=== PATIENT | female | born 1985 | race Hispanic/Latino ===

== ENCOUNTER 2020-02-03 06:26 | Emergency (ER) | payer SELFPAY ==
--- OUTSIDE RECORDS SUMMARY | 2020-02-03 06:28 | XMS REPORT | Continuity of Care Document ---
:[address] [facility] t Address [address] [place] [place] [address] Care Team Providers Name Role Phone Jean-Pierre Awan Attending Clinician Problems This patient has no known problems. Allergies, Adverse Reactions, Alerts This patient has no known allergies or adverse reactions. Medications This patient has no known medications. Procedures This patient has no known procedures. Encounters Start End Encounter Admission Attending Care Care Encounter Source Date/Time Date/Time Type Type Clinicians Facility Department ID 2020-02-02 2020-02-02 Office HUBER Mckeon [id number] 12:51:44 13:39:32 Visit Gorge Morejon [facility] [id number] [facility] [id number] MATERNAL [phone] & CHILD [address] [place] [address] Results This patient has no known results.
--- OUTSIDE RECORDS SUMMARY | 2020-02-03 06:29 | XMS REPORT | Summary of Care ---
:1985 Author Organization [facility] - Health Address [address] [place] [address] Care Team Providers Name Role Phone Jean-Pierre Mckeon Primary Care Provider Encounter Details Date Type Department Care Team Description 02/02/2020 Orders Only [facility] Doctor Unassigned, No [address] [facility] [place] [address] [address] [place] [place] [id number] Allergies Active Allergy Reactions Severity Noted Date Comments Hydrocodone Hives 11/24/2013 Penicillins Hives 11/24/2013 documented as of this encounter (statuses as of 02/02/2020) Medications Medication Sig Dispensed Refills Start Date End Date Status metformin HCl (METFORMIN Take by mouth. 0 Active ORAL) norgestimate-ethinyl Take 1 tablet by 1 Package 3 02/02/2020 Active estradiol (SPRINTEC) mouth daily. 0.25-35 mg-mcg per tabletIndications: Encounter for contraceptive management, unspecified type naproxen 250 mg Take 1 tablet by 60 tablet 0 02/02/2020 Active tabletIndications: Pain mouth 2 (two) pelvic times daily with meals. documented as of this encounter (statuses as of 02/02/2020) Active Problems Problem Noted Date Trichomonosis 03/25/2018 Encounter for control pills maintenance 03/22/20 19 Well woman exam (no gynecological exam) 03/22/2018 Morbid obesity 03/22/2018 Screen for STD (sexually transmitted disease) 03/22/20 18 Irregular menstrual cycle 01/18/2018 Ovarian cyst 01/18/2018 Overview: Dr Ortiz [place] Dysfunctional uterine bleeding 12/15/2013 documented as of this encounter (statuses as of 02/02/2020) Immunizations Name Administration Dates Next Due TDAP 07/06/2012 documented as of this encounter Social History Tobacco Use Types Packs/Day Years Used Date Never Smoker Smokeless Tobacco: Never Used Alcohol Use Drinks/Week oz/Week Comments No Sex Assigned at Date Recorded Not on file Job Start Date Occupation Industry Not on file Not on file Not on file Travel History Travel Start Travel End No recent travel history available. COVID-19 Exposure Response Date Recorded In the last month, have you been in contact with No / Unsure 02/02/2020 1:39 PM CDT someone who was confirmed or suspected to have Coronavirus / COVID-19? documented as of this encounter Last Filed Vital Signs Not on filedocumented in this encounter Plan of Treatment Date Type Specialty Care Team Description 02/17/2020 Office Visit [facility] Health Maintenance Due Date Last Done Comments INFLUENZA VACCINE (#1) 2020 Depression Screening 02/01/2021 02/02/2020 VARICELLA VACCINES (1 of 2 02/01/2021 Postp oned from - 2-dose childhood series) 09/21 (Alternative Guidelines) PAP SMEAR 03/22/2021 03/22/2018, 11/24/2013, 11/22/2009, Additional history exists DTaP,Tdap,and Td Vaccines 07/06/2022 07/06/2012 (2 - Td) PNEUMOCOCCAL 0-64 YEARS Aged Out No longe r eligible COMBINED SERIES based on patient 's age to complete this topic documented as of this encounter Procedures Procedure Name Priority Date/Time Associated Diagnosis Comme nts NOTICE OF PRIVACY Routine 02/02/2020 1:41 PM CDT PRACTICES documented in this encounter Results Not on filedocumented in this encounter Insurance Payer Benefit Plan Subscriber ID Effective Phone Address Typ e / Group Dates [employer] [place] [id number] xxxxxxxxx 2020-Prese [phone] Medicaid WOMEN nt [address] [place] [address] [facility] [employer] [facility] [id number] 2018-Prese [phone] [address] PPO/POS - OUT OF nt [id number] [place] [address] documented as of this encounter Advance Directives Name Relationship Healthcare Agent Relationship Co mmunication Justine Kearney Primary healthcare agent
--- OUTSIDE RECORDS SUMMARY | 2020-02-03 06:29 | XMS REPORT | Summary of Care ---
:1985 Author Organization [facility] Address [address] [place] [id number] Care Team Providers Name Role Phone Jean-Pierre Mckeon Primary Care Provider Reason for Visit Reason Comments Well Woman Exam Encounter Details Date Type Department Care Team Description 02/02/2020 Office Visit [facility] Mckeon Well woman exam (no gynecological exam) (Primary Dx); CATERINA Portillo Encounter for contraceptive management, unspecified type; [address] Screening for STD (sexually transmitted disease); [address] [place] Pain pelvic; [place], [place] [address] Menorrhagia with regular cycle; [id number] Class 3 severe obesity with body mass in dex (BMI) of 45.0 to 49.9 in adult, unspecified obesity type, unspecified whether serious comorbidity present; [phone] BMI 45.0- 49.9, adult Allergies Active Allergy Reactions Severity Noted Date Comments Hydrocodone Hives 11/24/2013 Penicillins Hives 11/24/2013 documented as of this encounter (statuses as of 02/02/2020) Medications Medication Sig Dispensed Refills Start Date End Date Status metformin HCl Take by 0 Active (METFORMIN ORAL) mouth. norgestimate-ethinyl Take 1 tablet 1 Package 3 02/02/2020 Active estradiol (SPRINTEC) by mouth 0.25-35 mg-mcg per daily. tabletIndications: Encounter for contraceptive management, unspecified type naproxen 250 mg Take 1 tablet 60 tablet 0 02/02/2020 Active tabletIndications: by mouth 2 Pain pelvic (two) times daily with meals. phentermine Take 37.5 mg 0 02/02/2020 Disc ontinued (ADIPEX-P) 37.5 mg by mouth capsule every morning. norgestimate-ethinyl Take 1 tablet 1 Package 11 03/22/201801/05 Discontinued estradiol (SPRINTEC) by mouth 0.25-35 mg-mcg per daily. tabletIndications: Encounter for contraceptive management, unspecified type ALPRAZolam (XANAX) Take 0.5 mg 0 0 Discontinued 0.5 mg tablet by mouth 3 (three) times daily. documented as of this encounter (statuses as of 02/02/2020) Active Problems Problem Noted Date Menorrhagia with regular cycle 02/02/2020 Pain pelvic 02/02/2020 Class 3 severe obesity with body mass index (BMI) of 4 5.0 to 49.9 in 02/02/2020 adult, unspecified obesity type, unspecified whether s erious comorbidity present BMI 45.0-49.9, adult 02/02/2020 Trichomonosis 03/25/2018 Encounter for control pills maintenance 03/22/20 19 Well woman exam (no gynecological exam) 03/22/2018 Morbid obesity 03/22/2018 Encounter for contraceptive management, unspecified ty pe 03/22/2018 Irregular menstrual cycle 01/18/2018 Ovarian cyst 01/18/2018 Overview: [place] Ortiz [place] Dysfunctional uterine bleeding 12/15/2013 documented as of this encounter (statuses as of 02/02/2020) Immunizations Name Administration Dates Next Due TDAP 07/06/2012 documented as of this encounter Social History Tobacco Use Types Packs/Day Years Used Date Never Smoker Smokeless Tobacco: Never Used Tobacco Cessation: Counseling Given: Yes Alcohol Use Drinks/Week oz/Week Comments No Sex [...] of this encounter Last Filed Vital Signs Vital Sign Reading Time Taken Comments Blood Pressure 132/89 02/02/2020 1:39 PM CDT Pulse 77 02/02/2020 1:39 PM CDT Temperature 37.1 C (98.7 F) 02/02/2020 1:39 PM CDT Respiratory Rate 16 02/02/2020 1:39 PM CDT Oxygen Saturation - - Inhaled Oxygen Concentration - - Weight 117.8 kg (259 lb 9.6 oz) 02/02/2020 1:39 PM CDT Height 157.5 cm (5' 2") 02/02/2020 1:39 PM CDT Body Mass Index 47.48 02/02/2020 1:39 PM CDT documented in this encounter Patient Instructions Patient InstructionsCodi Siddiqui LVN - 02/02/2020 12:45 PM CDT Patient Education Clinical Breast Exam Many health organizations recommend a yearly clinical breast exam. This exam may be done by a security system sales consultant, family healthcare provider, nurse practitioner, nurse ring maker, or specially trained nurse. Yearly breast exams help tomake surethat breast conditions are found early. Your healthcare providers role A healthcare professional knows the tests and follow-up care needed if a problem is found. Your clinical exam is also a great time to ask questions about breast self-exams. You can find out if yourechecking your breasts in the best way. Or you may want to ask how , breast implants, or breast reduction surgery affect the way you should check your breasts. Diagnostic tests If a clinical exam reveals a breast change, you may have other tests to find out more. These tests may include: Mammography. A low-dose X-ray of your breast tissue. Ultrasound. An imaging test that uses sound waves to create images of your breast. Biopsy. A small amount of breast tissue is removed by needle or by a cut (incision). The tissue is then checked under a microscope. Guidelines for having clinical breast exams The [employer] recommends that starting at age 29, you should have a clinical breast exam every 1 to 3 years. After age 40, have a clinical breast exam each year. If youre at higher risk for breast cancer, you may need exams more often. Risk factors for breast cancer may include: Being over 50 or postmenopausal Having a family history of breast cancer Having the BRCA1 or BRCA2 gene mutation or certain other gene mutations Having more menstrual periods due to starting menstruation early(before age 12) or having a late menopause (after age 55) Having no pregnancies Having a first after age 30 Being obese Having a history of radiation treatment to your chest area Exposure to FRED during your mother's Not being active Drinking too much alcohol Having dense breast tissue Taking hormone therapy after menopause Other health organizations have different recommendations. Talk with your healthcare provider about what is best for you. [employer] cecille reviewed this educational content on 02/03/201719992533-3289 The [employer]. [address] [place] [address]. All rights reserved. This information is not intended as a substitute for professional medical care. Always follow your healthcare professional's instructions. Patient Education Breast Health: Breast Self-Awareness What is breast self-awareness? Breast self-awareness is knowing how your breasts normally look and feel. Your breasts change as yougo through different stages of your life. So its important to learn what is normal for your breasts. Knowing about your breasts helps you spot any changes in them right away. Tell your healthcare provider about any changes. Why is breast self-awareness important? Many experts now say that women should focus on breast self-awareness instead of doing a breast self-examination (BSE). These experts include the [employer] and the [employer]. Some experts even advise not teaching women to do a BSE. Thats because research hasnt shown a clear benefit to doing BSEs. Breast self-awareness is different than a BSE. It isnt about following a certain method and schedule. Its about knowing what's normal for your breasts. That way you can spot even small changes right away. If you see any changes, tell your healthcare provider. Changes to look for Call your healthcare provider if you find any changes in your breasts that worry you. These changes may be: A lump Nipple discharge other than breastmilk, especially if it's bloody Swelling A change in size or shape Skin changes, such as redness, thickening, or dimpling of the skin Swollen lymph nodes in the armpit Nipple problems, such as pain or redness If you find a lump Call your provider if you find lumpiness in one breast. Also call if you feel something different inthe tissue or feel a definite lump. Sometimes lumpiness may be due to menstrual changes. But there may be reason for concern. Your provider may want to see you right away if you have: Nipple discharge that is bloody Skin changes on your breast, such as dimpling or puckering Its okay to be upset if you find a lump. Be sure to call your provider right away. Remember that most breast lumps are benign. This means they are not cancer. [employer] last reviewed this educational content on 02/03/201719996033-7473 The [employer]. [address] [place] [address], [place] [address]. All rights reserved. This information is not intended as a substitute for professional medical care. Always follow your healthcare professional's instructions. Patient Education Understanding STIs When it comes to sex, nothing is risk-free. Any sexual contact with the penis, vagina, anus, or mouth can spread a sexually transmitted infection (STI). These include chlamydia, gonorrhea, herpes, HIV,and genital warts. STIs are also known as sexually transmitted diseases (STDs). The only sure way toprevent STIs is not having sex (abstinence). But there are ways to make sex safer. Use a latex condom each time you have sex. And choose your partner wisely. Use condoms for safer sex If you have sex, latex condoms provide the best protection against STIs. Latex condoms stop the exchange of body fluids that carry certain STIs. They also limit contact with affected skin. Be aware that a condom doesnt cover all skin. So affected skin that isn't covered can still transfer disease. But youre safer with a condom than without one. Use a condom even if you use other control. control methods such as the pill or IUD help prevent , but they don't protect against STIs. Choose the right condom Condoms made of latex prevent disease best. If youre allergic to latex, use polyurethane condoms instead. Male condoms fit over the penis. Female condoms line the vagina. Before buying a condom, read the label to be sure it prevents disease. Some novelty condoms dont. The right lubricant helps Buy lubricated condoms or use lubricant. This provides greater comfort and reduces the risk for condom breakage. Use only water-based lubricants. Dont use oil, lotion, or petroleum jelly. They can weaken the condom, causing breakage. Also, you may want to choose lubricants without nonoxynol-9. This spermicide may cause irritation. It can raise the risk for certain STIs. Use condoms correctly For condoms to work, they must be used the right way. Keep these tips in mind: Use a new latex condom each time you have sex. Slip the condom on the penis before any contact ismade. When ready to withdraw, hold the rim of the condom as the penis pulls out. This prevents the condom from slipping off. Check the expiration date before using a condom. Dont store condoms in places that can get hot, such as a car or a wallet that is carried in a back pocket. Get to know your partner Safer sex is a process. It involves getting to know your partner and making informed choices. Ask each other how many partners you have had in the past, and how many you have now. Find out if either ofyou has HIV or any other STI. If you decide to have sex, use a condom each time. Dont stop using condoms unless youre sure neither of you has other partners and youve both been tested to confirm you dont have HIV or other STIs. Then stay free of disease by having sex only with each other (monogamy). Keep your cool Dont let alcohol or drugs cloud your judgment. They could lead you to have sex with someone you wouldnt have chosen if you were sober. Or you might forget to use a condom. If you do plan to have sex, keep a latex condom with you. Dont wait until youre in the heat of passion to try to find one. Consider abstinence The only way to be sure you wont get an STI is to abstain from sex. Abstinence is a choice that many people make at some point in their life. Maybe you want to wait until you are sure youre readybefore you have sex. Maybe youd like a break from the responsibilities of sex for a while. Or maybe you just want to know your partner better before taking the next step. Abstinence is a choice you can make now to protect your future. [employer] last reviewed this educational content on 06/05/201819992231-3024 The [employer]. [address] [place] [address], [place] [address]. All rights reserved. This information is not intended as a substitute for professional medical care. Always follow your healthcare professional's instructions. Patient Education Understanding HIV and AIDS It's important to know how HIV can get into your body and what happens once its there. Then youll be better prepared to protect yourself or others against this virus. A person with HIV can look and feel perfectly healthy. But that person can give HIV to others as soon as he or she is infected with the virus. Having unsafe or unprotected sex or sharing needles puts you at risk for HIV. Talk with your healthcare provider about ways to protect yourself or a loved one from getting HIV. How HIV infection progresses After HIV enters the body, it attacks the immune system in the stages below. A person with HIV can infect others once the virus gets into the blood. HIV with no symptoms. A person with HIV may have no symptoms for years. The only sign of infection may be a positive blood test for HIV 2 weeks to 3 months or later after HIV enters the body. HIV with symptoms. Some people develop an illness similar to mono (mononucleosis) 2 to 4 weeks after the virus enters the body. This is called acute retroviral syndrome. Symptoms may include swollen lymph glands, chills, fever, night sweats, weakness, weight loss, skin rashes, mouth ulcers, or sore t hroat. Symptoms may be mild or the person can feel quite sick. Even without treatment the symptoms almost always go away in a few days or up to 2 to 3 weeks. Then the person has no symptoms, often for years. But over time the immune system starts to get weaker and symptoms start appearing. People at this stage may have a yeast infection in the mouth (oral thrush), shingles, skin problems, pneumonia, diarrhea that keeps coming back, or weight loss. AIDS. AIDS is the most advanced stage of HIV infection, when the immune system is severely weakened.Certain rare diseases and cancers that normally would not occur, now can occur because the body can no longer fight them well enough. It is often these diseases that cause in people with AIDS. HIV may also directly attack the brain and nervous system. This causes seizures and loss of memory and body movement. It also affects many other parts of the body. This leads to problems such as anemia, low white blood cell count, diarrhea, belly pain, skin problems, and many others. How HIV enters the body HIV is carried in semen, vaginal fluid, blood, and breastmilk. During sex, HIV can enter the body. It gets in through the fragile tissue and linings, sores, or cuts in or around the vagina, penis, anus, and mouth. During drug use, tattooing, or body piercing, the virus can enter the blood through an infected needle. A mother who has HIV can infect her child during , childbirth, and . [employer] last reviewed this educational content on 12/04/201819999122-7349 The [employer]. [address] [place] [address], [place] [address]. All rights reserved. This information is not intended as a substitute for professional medical care. Always follow your healthcare professional's instructions. Patient Education Eating Heart-Healthy Foods Eating has a big impact on your heart health. In fact, eating healthier can improve several of your heart risks at once. For instance, it helps you manage weight, cholesterol, and blood pressure. Here are ideas to help you make heart- healthy changes without giving up allthe foods and flavors you love. Getting started Talk with your healthcare provider about eating plans, such as the DASH or Mediterranean diet. You may also be referred to a dietitian. Change a few things at a time. Give yourself time to get used to a few eating changes before adding more. Work to create a tasty, healthy eating plan that you can stick to for the rest of your life. Goals for healthy eating Below are some tips to improve your eating habits: Limit saturated fats and trans fats. Saturated fats raise your levels of cholesterol, so keep these fats to a minimum. They are found in foods such as fatty meats, whole milk, cheese, and palm and coconut oils. Avoid trans fats because they lower good cholesterol as well as raise bad cholesterol. Trans fats are most often found in processed foods. Reduce sodium (salt) intake. Eating too much salt may increase your blood pressure. Limit your sodium intake to 2,300 milligrams (mg) per day(the amount in 1 teaspoon of salt), or less if your healthcare provider recommends it. Dining out less often and eating fewer processed foods are two great ways to decrease the amount of salt you consume. Managing calories. A calorie is a unit of energy. Your body salazar calories for fuel, but if you eat more calories than your body salazar, the extras are stored as fat. Your healthcare provider can help you create a diet plan to manage your calories. This will likely include eating healthier foods as well as exercising regularly. To help you track your progress, keep a diary to record what you eat and how often you exercise. Choose the right foods Aim to make these foods georgiana of your diet. If you have diabetes, you may have different recommendations than what is listed here: Fruits and vegetables provide plenty of nutrients without a lot of calories. At meals, fill half your plate with these foods. Split the other half of your plate between whole grains and lean protein. Whole grains are high in fiber and rich in vitamins and nutrients. Good choices include whole-wheat bread, pasta, and brown rice. Lean proteins give you nutrition with less fat. Good choices include fish, skinless chicken, and beans. Low-fat or nonfat dairy provides nutrients without a lot of fat. Try low-fat or nonfat milk, cheese, or yogurt. Healthy fats can be good for you in small amounts. These are unsaturated fats, such as olive oil,nuts, and fish. Try to have at least 2 servings per week of fatty fish, such as salmon, sardines, mackerel, rainbow trout, and albacore tuna. These contain omega-3 fatty acids, which are good for your heart. Flaxseed is another source of a heart-healthy fat. More on heart-healthy eating Read food labels Healthy eating starts at the grocery store. Be sure to pay attention to food labels on packaged foods. Look for products that are high in fiber and protein, and low in saturated fat, cholesterol, and sodium. Avoid products that contain trans fat. And pay close attention to serving size. For instance, if you plan to eat two servings, double all the numbers on the label. Prepare food right A hutchinson part of healthy cooking is cutting down on added fat and salt. Look on the internet for lower-fat, lower-sodium recipes. Also, try these tips: Remove fat from meat and skin from poultry before cooking. Skim fat from the surface of soups and sauces. Broil, boil, bake, steam, grill, and microwave food without added fats. Choose ingredients that spice up your food without adding calories, fat, or sodium. Try these items: horseradish, hot sauce, lemon, mustard, nonfat salad dressings, and vinegar. For salt-free herbs and spices, try basil, cilantro, cinnamon, pepper, and silvina. [employer] last reviewed this educational content on 04/05/201719993990-0565 The [employer]. [address] [place] [address], [place] [address]. All rights reserved. This information is not intended as a substitute for professional medical care. Always follow your healthcare professional's instructions. Patient Education Understanding [employer] MyPlate The USDA (U.S. Department of Agriculture) has guidelines to help you make healthy food choices. These are called MyPlate. MyPlate shows the food groups that make up healthy meals using the image of a place setting. Before you eat, think about the healthiest choices for what to put onto your plate or into your cup or bowl. To learn more about building a healthy plate, visit www.choosemyplate.gov. The food groups Fruits. Any fruit or 100% fruit juice counts as part of the Fruit Group. Fruits may be fresh, canned, frozen, or dried, and may be whole, cut-up, or pureed. Make half your plate fruits and vegetables. Vegetables. Any vegetable or 100% vegetable juice counts as a member of the Vegetable Group. Vegetables may be fresh, frozen, canned, or dried. They can be served raw or cooked and may be whole, cut-up, or mashed. Make half your plate fruits and vegetables. Grains. All foods made from grains are part of the Grains Group. These include wheat, rice, oats,cornmeal, and barley such as bread, pasta, oatmeal, cereal, tortillas, and grits. Grains should be no more than a quarter of your plate. At least half of your grains should be whole grains. Protein. This group includes meat, poultry, seafood, beans and peas, eggs, processed soy products(like tofu), nuts (including nut butters), and seeds. Make protein choices no more than a quarter ofyour plate. Meat and poultry choices should be lean or low fat. Dairy. All fluid milk products and foods made from milk that contain calcium, like yogurt and cheese, are part of the Dairy Group. (Foods that have little calcium, such as cream, butter, and cream cheese, are not part of the group.) Most dairy choices should be low-fat or fat-free. Oils. These are fats that are liquid at room temperature. They include canola, corn, olive, soybean, and sunflower oil. Foods that are mainly oil include mayonnaise, certain salad dressings, and soft margarines. You should have only 5 to 7 teaspoons of oils a day. You probably already get this muchfrom the food you eat. [employer] cecille reviewed this educational content on 02/03/201719992980-6181 The [employer]. [address] [place] [address], [place] [address]. All rights reserved. This information is not intended as a substitute for professional medical care. Always follow your healthcare professional's instructions. Patient Education Prevention Guidelines,Women Ages 18 to 39 Screening tests and vaccines are an important part of managing your health. A screening test is doneto find possible disorders or diseases in people who don't have any symptoms. The goal is to find a disease early so lifestyle changes can be made and you can be watched more closely to reduce the riskof disease, or to detect it early enough to treat it most effectively. Screening tests are not considered diagnostic, but are used to determine if more testing is needed. Health counseling is essential, too. Below are guidelines for these, for women ages 18 to 39. Talk with your healthcare provider tomake sure youre up-to-date on what you need. Screening Who needs it How often Alcohol misuse All women in this age group At routine exams Blood pressure All women in this age group Yearly checkup if your blood pressure is normal Normal blood pressure is less than 120/80 mm Hg If your blood pressure reading is higher than normal, follow the advice of your healthcare provider Breast cancer All women in this age group should talk with their healthcare providers about the needfor clinical breast exams (CBE)1 Clinical breast exam every 3 years1 Cervical cancer Women ages 21 and older Women between ages 21 and 29 should have a Pap test every 3 years; women between ages 30 and 65 are advised to have a Pap test plus an HPV test every 5 years Chlamydia Sexually active women ages 25 and younger, and women at increased risk for infection (suchas having multiple sex partners) Every year if you're at risk or have symptoms Depression All women in this age group At routine exams Type 2 diabetes, prediabetes All women with no symptoms who are overweight or obese and have 1 or more other risk factors for diabetes At least every 3 years. Also, testing for diabetes during after the 24th week. Type 2 diabetes, prediabetes All women diagnosed with gestational diabetes Lifelong testing every 3 years Type 2 diabetes All women with prediabetes Every year Gonorrhea Sexually active women at increased risk for infection At routine exams Hepatitis C Anyone at increased risk At routine exams HIV All women should be tested at least once for HIV between the ages of 13 and 64 At routine exams.Those with risk factors for HIV should be tested at least annually. Obesity All women in this age group At routine exams Syphilis Women at increased risk for infection should talk with their healthcare provider At routineexams Tuberculosis Women at increased risk for infection should talk with their healthcare provider Ask your healthcare provider Vision All women in this age group At least 1 complete exam in your 20s, and 2 in your 30s Vaccine2 Who needs it How often Chickenpox (varicella) All women in this age group who have no record of this infection or vaccine 2doses; the second dose should be given 4 to 8 weeks after the first dose Hepatitis A Women at increased risk for infection should talk with their healthcare provider 2 dosesgiven at least 6 months apart Hepatitis B Women at increased risk for infection should talk with their healthcare provider 3 dosesover 6 months; second dose should be given 1 month after the first dose; the third dose should be given at least 2 months after the second dose and at least 4 months after the first dose Haemophilus influenzaeType B (HIB) Women at increased risk for infection should talk with their healthcare provider 1 to 3 doses Human papillomavirus (HPV) All women in this age group up to age 26 3 doses; the second dose should be given 1 to 2 months after the first dose and the third dose given 6 months after the first dose Influenza (flu) All women in this age group Once a year Measles, mumps, rubella (MMR) All women in this age group who have no record of these infections or vaccines 1 or 2 doses Meningococcal Women at increased risk for infection should talk with their healthcare provider 1 or more doses Pneumococcal conjugate vaccine (PCV13)and pneumococcal polysaccharidevaccine(PPSV23) Women at increased risk for infection should talk with their healthcare provider PCV13: 1 dose ages 19 to 65 (protects against 13 types of pneumococcal bacteria) PPSV23: 1 to2 doses through age 64, or 1 dose at 65 or older (protects against 23 types of pneumococcal bacteria) Tetanus/diphtheria/pertussis (Td/Tdap) booster All women in this age group Td every 10 years, or a one-time dose of Tdap instead of a Td booster after age 18, then Td every 10 years Counseling Who needs it How often BRCA gene mutation testing for breast and ovarian cancer susceptibility Women with increased risk for having gene mutation When your risk is known Breast cancer and chemoprevention Women at high risk for breast cancer When your risk is known Diet and exercise Women who are overweight or obese When diagnosed, and then at routine exams Domestic violence Women at the age in which they are able to have children At routine exams Sexually transmitted infection prevention Women who are sexually active At routine exams Skin cancer Prevention of skin cancer in fair-skinned adults At routine exams Use of tobacco and the health effects it can cause All women in this age group Every visit 1 According to the ACS, women ages 20 to 39 years should have a clinical breast exam (CBE) as part of their routine health exam every 3 years. Breast self-exams are an option for women starting in their 20s.But the USPSTF does not recommend CBE. [employer] last reviewed this educational content on 04/05/201719995689-4487 The [employer]. [address] [place] [address]. All rights reserved. This information is not intended as a substitute for professional medical care. Always follow your healthcare professional's instructions. documented in this encounter Progress Notes Gorge Mckeon, LICENSED EMBALMER - 02/02/2020 12:45 PM CDT Chief complaint: Chief Complaint Patient presents with Well Woman Exam HPI Patient is a LAF here for WWE and contraception management. Patient denies any abdominal/pelvic pain. Patient complains of missed menses for the month of December. Patient report she started menses on 01/31/2020. Patient reports today she has experienced heavy bleeding with large clots. Patient report she has never had this issue before. Patient report has is experience lots of pelvic pain with this menses as well. Patient report she is bleeding for heavy that she does not want pelvic exam.Patient reports last sexual intercourse was on 01/30/2020 and desires to use OCPs for BCM. Patient desiresneed for STD/STI testing. Patient denies current or past physical, sexual or emotional abuse. Histories OB History Para Term AB Living 0 SAB TAB Ectopic Multiple Live Births Past Medical History: Diagnosis Date Anxiety resolved Chlamydia 2012 treated Diabetes mellitus 11/2019 type 2, on medication Dysfunctional uterine bleeding 12/15/2013 Ovarian cyst PCOS (polycystic ovarian syndrome) 2017 Family History Problem Relation Age of Onset Diabetes Paternal Grandmother Cancer Paternal Grandfather stomach Arthritis Mother Diabetes Mother Cancer Father Arthritis Maternal Grandmother Diabetes Maternal Grandmother Asthma NoFHx defects NoFHx Breast Cancer NoFHx Colon Cancer NoFHx Ovarian Cancer NoFHx Uterine Cancer NoFHx Depression NoFHx Genetic NoFHx Heart NoFHx Hypertension NoFHx High cholesterol NoFHx Mental retardation NoFHx Neurological NoFHx Psychiatry NoFHx Osteoporosis NoFHx Other - see comments NoFHx Family Status Relation Name Status PGMo (Not Specified) PGFa (Not Specified) Mo Alive Fa Alive MGMo (Not Specified) NoFHx (Not Specified) Past Surgical History: Procedure Laterality Date MYRINGOTOMY 1992 Social History Socioeconomic History Marital status: Single Spouse name: Not on file Number of children: Not on file Years of education: Not on file Highest education level: Not on file Occupational History Not on file Social Needs Financial resource strain: Not on file Food insecurity: Worry: Not on file Inability: Not on file Transportation needs: Medical: Not on file Non-medical: Not on file Tobacco Use Smoking status: Never Smoker Smokeless tobacco: Never Used Substance and Sexual Activity Alcohol use: No Drug use: No Sexual activity: Yes Partners: Male control/protection: None Comment: last had sex 01/30/2020 Lifestyle Physical activity: Days per week: Not on file Minutes per session: Not on file Stress: Not on file Relationships Social connections: Talks on phone: Not on file Gets together: Not on file Attends hindu service: Not on file Active member of club or organization: Not on file Attends meetings of clubs or organizations: Not on file Relationship status: Not on file Intimate partner violence: Fear of current or ex partner: Not on file Emotionally abused: Not on file Physically abused: Not on file Forced sexual activity: Not on file Other Topics Concern Not on file Social History Narrative Patient lives with boyfriend. Congregation preference non-D. Social History Substance and Sexual Activity Sexual Activity Yes Partners: Male control/protection: None Comment: last had sex 01/30/2020 Labs Labs are pending. Radiology No new radiology. Allergies Yeimy is allergic to hydrocodone and pcn [penicillins]. Medications Yeimy has a current medication list which includes the following prescription(s): metformin hcl, naproxen, and norgestimate-ethinyl estradiol. Review of Systems Constitutional: Negative for activity change, appetite change, fatigue, unexpected weight change, weight gain and weight loss. HENT: Negative for sore throat. Eyes: Negative for visual disturbance. Respiratory: Negative for cough and shortness of breath. Breasts: Negative for discharge, mass, pain and unequal size. Cardiovascular: Negative for chest pain, palpitations and leg swelling. Gastrointestinal: Negative. Negative for abdominal pain, anal bleeding, blood in stool, constipation, diarrhea, nausea, rectal pain and vomiting. Genitourinary: Positive for vaginal bleeding and menstrual problem. Negative for bladder incontinence, dysuria, urgency, flank pain, vaginal discharge, genital sores, vaginal pain and pelvic pain. Skin: Negative for color change and rash. Neurological: Negative. Negative for dizziness, syncope and headaches. Psychiatric/Behavioral: Negative for confusion, self-injury and sleep disturbance. The patient is not nervous/anxious. Hematological: Negative for cold intolerance and heat intolerance. Endocrine: Negative for hair loss, cold intolerance, heat intolerance, weight gain and weight loss. BP 132/89 (BP Location: Right arm, Patient Position: Sitting, BP CUFF SIZE: Adult Medium) | Pulse 77 | Temp 37.1 C (98.7 F) (Oral) | Resp 16 | Ht 5' 2" (1.575 m) | Wt 259 lb 9.6 oz (117.8 kg)| LMP 12/01/2019 (Exact Date) | BMI 47.48 kg/m Pregravid BMI: Could not be calculated Physical Exam Vitals reviewed. Constitutional: She is oriented to person, place, and time. She appears well- developed and well-nourished. Her body habitus is normal. Cardiovascular: Regular rate and rhythm. No peripheral edema present. Pulmonary/Chest: Normal inspiratory effort. Neuro/Psychiatric: Inappropriate mood and affect. She is oriented to person, place, and time. Skin: Skin normal. No lesion, no rash and no ulceration present. Assessment/Plan Rubella:Positive VZV:N/A BMI:47.48 Td:2012 Pap Smear:2018, WNL Gardasil:N/A Mammogram:N/A Guaiac:N/A Colonoscopy:N/A Well woman exam (no gynecological exam) (primary encounter diagnosis) Comment: Routine WWE Plan: POCT TEST Denies zika virus risk, signs and symptoms such as fever,rash,joint pain, conjunctivitis (red eyes), muscle pain, headaches; outside [place] travel to areas affected by zika, and FOB exposure to zika.Educated on use of mosquito repellent. Covid x12 screening done, screening results are negative. Encounter for contraceptive management, unspecified type Comment: patient desires to restart OCPs Plan: norgestimate-ethinyl estradiol (SPRINTEC) 0.25-35 mg-mcg per tablet Patient desires OCPs for contraception. Provider has reviewed risks, benefits and alternatives contraception methods. Provider has also reviewed use, side effects and effectiveness of desired BCM vs other BCM. Encouraged abstinence until menses. Encouraged use of condoms as back up x 1 month and for safer sex. Screening for STD (sexually transmitted disease) Comment: patient desires Plan: GC & CHLAMYDIA AMPLIFIED ASSAY Pain pelvic Comment: see HPI Plan: naproxen 250 mg tablet, Patient given ER warnings. Menorrhagia with regular cycle Comment: See HPI Plan: [facility], Patient given ER warnings. Class 3 severe obesity with body mass index (BMI) of 45.0 to 49.9 in adult, unspecified obesity type, unspecified whether serious comorbidity present BMI 45.0-49.9, adult Comment: BMI:47.48 Plan: Patient encouraged to limit weight gain and advised to eat healthy diet, fruits, vegetables, increased fiber and water intake and protein low in fat. Encouraged exercise for 30 min everyday; begin regimen with caution to prevent injury. Encouraged to decrease BMI to <25. Return to clinic in 1 year for WWE or PRN weeks. Discussed treatment options. Medications as ordered. Reviewed patient instructions and provided printed copy. This visit did not involve counseling and coordination that comprised more than 50% of the visit time. CATERINA Blancas 02/02/2020 2:56 PM Codi Siddiqui LVN - 02/02/2020 12:45 PM CDT34 year old presented to the clinic for WWE. 1) Previous BCM:none 2) Desired BCM:none 3) LMP: 12/01/2019 4) Last [place]:01/30/2020 5) Last Pap:03/22/2018 Results:negative 6) Tdap in last 10 years?07/06/2012 HPV?negative 7) C/O Heavy bleeding and passed 3 golf ball sized clots today. 8) Patient denies history of physical, emotional, or sexual abuse. Patient states she currently feels safe at home. documented in this encounter Plan of Treatment Date Type Specialty Care Team Description 02/17/2020 Office Visit [facility] Name Type Priority Associated Diagnoses Order S chedule GC & CHLAMYDIA AMPLIFIED LAB Routine Screening for ST D Ordered: 02/02/2020 ASSAY (sexually transmitted disease) Health Maintenance Due Date Last Done Comments [...] Name Priority Date/Time Associated Diagnosis Comme nts POCT Routine 02/02/2020 1:20 Well woman exam (no Re sults for this TEST PM CDT gynecological exam) procedur e are in the results section. documented in this encounter Results POCT TEST (02/02/2020 1:20 PM CDT) Pathologist Sig nature POCT PREG Negative On board controls acceptable Yes with C Line POCT PREG LOT # POCT PREG TEST DATE Specimen Urine - URINE, CLEAN CATCH documented in this encounter Visit Diagnoses Diagnosis Encounter for contraceptive management, unspecified type Pain pelvic Unspecified symptom associated with fema le genital organs Menorrhagia with regular cycle Excessive or frequent menstruation Class 3 severe obesity with body mass in dex (BMI) of 45.0 to 49.9 in adult, unspecified obesity type, unspecified wh ether serious comorbidity present BMI 45.0-49.9, adult Body Mass Index 45.0-49.9, adult documented in this encounter Insurance Payer Benefit Plan Subscriber ID Effective Phone Address Typ e / Group Dates [facility] xxxxxxxxx 2020-Prese [phone] Medicaid WOMEN nt [address] [place] [address] documented as of this encounter Advance Directives Name Relationship Healthcare Agent Relationship Co mmunication Justine Kehinde Mother Primary healthcare agent
--- OUTSIDE RECORDS SUMMARY | 2020-02-03 06:29 | XMS REPORT | Summary of Care ---
:1985 Author Organization [facility] Address [address] [place] [id number] Care Team Providers Name Role Phone Jean-Pierre Mckeon Primary Care Provider Reason for Visit Reason Comments Well Woman Exam Encounter Details Date Type Department Care Team Description 02/02/[address] [facility] Gorge Mckeon Well woman exam (no gynecological exam) (Primary Dx); CATERINA Portillo Encounter for contraceptive management, unspecified type; [address] Screening for STD (sexually transmitted disease); [address] Pain pelvic; [place], [place] [address] Menorrhagia with regular cycle; [address] Class 3 severe obesity with body mass in dex (BMI) of 45.0 to 49.9 in adult, unspecified obesity type, unspecified whether serious comorbidity present; [phone] BMI 45.0- 49.9, adult Allergies Active Allergy [...] Ovarian cyst 01/18/2018 Overview: Dr Ortiz in [place] Dysfunctional uterine bleeding 12/15/2013 documented as of [...] This exam may be done by a upkeep mechanic, family healthcare provider, nurse practitioner, nurse radioisotope technologist, or specially trained nurse. Yearly breast exams [...] Guidelines for having clinical breast exams The [place] [employer]st[employer]ians and Gynec[employer] recommends that [...] provider about what is best for you. Zighra cecille reviewed this educational content on 02/03/201719991954-1842 The [employer]. [address] [place] [address]. All rights reserved. This information is not [...] breast self-examination (BSE). These experts include the [place] [employer] and the [place] [employer] of Obstetricians and Gynecologists. Some experts [...] benign. This means they are not cancer. [employer]ighra last reviewed this educational content on 02/03/201719994711-2416 The [employer]. [address] [place] [address], [place] [address]. All rights reserved. This information is not [...] can make now to protect your future. Zighra last reviewed this educational content on 06/05/201819994502-0744 The [employer]. [address] [place] [address], [place] [address]. All rights reserved. This information is not [...] her child during , childbirth, and . Zighra last reviewed this educational content on 12/04/201819994522-3348 The [employer]. [address] [place] [address], [place] [address]. All rights reserved. This information is not [...] try basil, cilantro, cinnamon, pepper, and silvina. Zighra last reviewed this educational content on 04/05/201719998722-9934 The [employer]. [address] [place] [address], [place] [address]. All rights reserved. This information is not intended as a substitute for professional medical care. Always follow your healthcare professional's instructions. Patient Education Understanding Bubble [employer] Balm MyPlate The USDA (U.S. Department of Agriculture) [...] get this muchfrom the food you eat. Zighra cecille reviewed this educational content on 02/03/201719995668-8413 The [employer]. [address] [place] [address], [place] [address]. All rights reserved. This information is not [...] 20s.But the USPSTF does not recommend CBE. Zighra last reviewed this educational content on 04/05/201719993439-1816 The [employer]. [address] [place] [address]. All rights reserved. This information is not intended as a substitute for professional medical care. Always follow your healthcare professional's instructions. documented in this encounter Progress Notes Gorge Mckeon, RELIEF MAP MODELER - 02/02/2020 12:45 PM CDT Chief complaint: [...] file Gets together: Not on file Attends mandaen service: Not on file Active member of [...] Social History Narrative Patient lives with boyfriend. Sikhism preference non-D. Social History Substance and Sexual [...] cycle Comment: See HPI Plan: [facility], Patient given ER warnings. Class 3 [...] Desired BCM:none 3) LMP: 12/01/2019 4) Last [place]:01/30/2020 5) Last Pap:03/22/2018 Results:negative 6) Tdap in [...] Address Typ e / Group Dates [facility] xxxxxxxxx 2020-Prese [phone] Medicaid WOMEN nt [address] [place] [address] documented as of this encounter Advance Directives Name Relationship Healthcare Agent Relationship Co mmunication Justine Kehinde Mother Primary healthcare agent
--- OUTSIDE RECORDS SUMMARY | 2020-02-03 06:30 | XMS REPORT | Summary of Care ---
:1985 Author Organization [facility] Address [address] [place] [id number] Care Team Providers Name Role Phone Jean-Pierre Mckeon Primary Care Provider Reason for Visit Reason Comments Well Woman Exam Encounter Details Date Type Department Care Team Description 02/02/2020 Office Visit [facility]- Gorge Mckeon Well woman exam (no gynecological exam) (Primary Dx); CATERINA Portillo Encounter for contraceptive management, unspecified type; [address] Screening for STD (sexually transmitted disease); [address] Pain pelvic; [place], [place] [address] Menorrhagia with regular cycle; [address] Class 3 severe obesity with body mass in dex (BMI) of 45.0 to 49.9 in adult, unspecified obesity type, unspecified whether serious comorbidity present; [phone] BMI 45.0- 49.9, adult Allergies Active Allergy [...] Ovarian cyst 01/18/2018 Overview: Dr Ortiz in [place] Dysfunctional uterine bleeding 12/15/2013 documented as of [...] This exam may be done by a nut dehydrator operator, family healthcare provider, nurse practitioner, nurse model and pattern supervisor, or specially trained nurse. Yearly breast exams [...] Guidelines for having clinical breast exams The [place] [employer]st[employer]ians and Gynecologists recommends that [...] provider about what is best for you. [employer] cecille reviewed this educational content on 02/03/201719991712-2076 The [employer]. [address] [place] [address]. All rights reserved. This information is not [...] breast self-examination (BSE). These experts include the [place] [employer] and the [place] [employer] of Obstetricians and Gynecologists. Some experts [...] benign. This means they are not cancer. [employer] last reviewed this educational content on 02/03/201719990870-5547 The [employer]. [address] [place] [address], [place] [address]. All rights reserved. This information is not [...] can make now to protect your future. [employer] last reviewed this educational content on 06/05/201819995769-5958 The [employer]. [address] [place] [address], [place] [address]. All rights reserved. This information is not [...] her child during , childbirth, and . [employer] last reviewed this educational content on 12/04/201819994721-5027 The [employer]. [address] [place] [address], [place] [address]. All rights reserved. This information is not [...] try basil, cilantro, cinnamon, pepper, and silvina. [employer] last reviewed this educational content on 04/05/201719992752-4492 The [employer]. [address] [place] [address], [place] [address]. All rights reserved. This information is not intended as a substitute for professional medical care. Always follow your healthcare professional's instructions. Patient Education Understanding Strategy Store MyPlate The USDA (U.S. Department of Agriculture) [...] get this muchfrom the food you eat. [employer] cecille reviewed this educational content on 02/03/201719993880-9213 The [employer], [employer]. [address] [place] [address], [place] [address]. All rights reserved. This information is not [...] 20s.But the USPSTF does not recommend CBE. [employer] last reviewed this educational content on 04/05/201719999339-0363 The [employer]. [address] [place] [address]. All rights reserved. This information is not intended as a substitute for professional medical care. Always follow your healthcare professional's instructions. documented in this encounter Progress Notes Gorge Mckeon, STATION ENGINEER MAIN LINE - 02/02/2020 12:45 PM CDT Chief complaint: [...] file Gets together: Not on file Attends mu-ism service: Not on file Active member of [...] Social History Narrative Patient lives with boyfriend. Hinduism preference non-D. Social History Substance and Sexual [...] cycle Comment: See HPI Plan: [facility], Patient given ER warnings. Class 3 [...] Desired BCM:none 3) LMP: 12/01/2019 4) Last [place]:01/30/2020 5) Last Pap:03/22/2018 Results:negative 6) Tdap in [...] Satellites Pgy2 Name Type Priority Associated Diagnoses Date/Ti me GC & CHLAMYDIA LAB Routine Screening for STD 02/02/20 20 3:24 PM CDT AMPLIFIED ASSAY (sexually transmitted disease) Health Maintenance Due [...] Address Typ e / Group Dates [facility] xxxxxxxxx 2020-Prese [phone] Medicaid WOMEN nt [address] [place] [address] documented as of this encounter Advance Directives Name Relationship Healthcare Agent Relationship Co mmunication Justine Busby Mother Primary healthcare agent
[2020-02-03] MEDS ORDERED: NA CHLORIDE 0.9% 1,000 ML ONE (07:02)
[2020-02-03] MEDS ORDERED: ONDANSETRON 4 MG/2 ML VIAL ONE ×2 (07:02→09:02)
[2020-02-03] MEDS ORDERED: KETOROLAC 30 MG/ML INJ ONE (07:02)
[2020-02-03 07:18] LABS: Absolute Lymphocytes (CBC) 3.2 K/uL (0.7-4.9); Basophils % 0.9 % (0-1.3); Hematocrit 39.3 % (36.0-45.0); Lymphocytes % 25.2 % (15.3-44.8); MPV 8.9 fL (7.6-11.3); RBC Red Blood Cell Count 4.58 M/uL (3.86-4.86)
[2020-02-03] MEDS ORDERED: MORPHINE 4 MG/ML SYR ONE ×2 (07:30→08:57)
[2020-02-03 08:02] LABS: Potassium 3.6 mmol/L (3.5-5.1)
--- NOTE | 2020-02-03 08:12 | RAD REPORT ---
EXAM DESCRIPTION: US - Transvaginal Study Probe - 02/03/2020 8:02 am CLINICAL HISTORY: Vaginal bleeding COMPARISON: 2017 FINDINGS: The uterus measures 10 x 5 x 5cm. A fibroid is not seen. Endometrial stripe measures 22 mi llimeters Right ovary is normal in size and echotexture. It contains a 2 centimeters cyst. Left ovary is normal in size and echotexture. A 3.7 centimeter cyst lies adjacent to the left ovary. It is unchanged from the 2017 exam The right and left adnexal unremarkable No significant free fluid is seen. IMPRESSION: Thickened endometrium. Follow-up ultrasound in approximately 6 weeks recommended for re- evaluation. 3.7 centimeter left adnexal cyst unchanged from 2017 and likely is benign
--- NOTE | 2020-02-03 08:32 | EDPHYS ---
Physician Documentation [facility] Name: Yeimy Busby Age: 34 yrs Sex: Female : 1985 Arrival Date: 02/03/2020 Time: 06:27 Bed 18 Private MD: ED Physician Dejuan Osborne HPI: 02/02 08:27 This 34 yrs old Female presents to ER via Ambulatory with complaints of jr8 Vaginal Bleeding, Vaginal Pain. 08:27 The patient presents with vaginal bleeding that is moderate, with clots. Onset: The jr8 symptoms/episode began/occurred gradually, 2 day(s) ago. Modifying factors: The symptoms are alleviated by nothing, the symptoms are aggravated by nothing. Associated signs and symptoms: Pertinent positives: cramping. Severity of symptoms: At their worst the symptoms were moderate, in the emergency department the symptoms are unchanged. The patient has not experienced similar symptoms in the past. The patient has been recently seen by a physician:. Patient seen by [facility] clinic for heavy menstrual cycle and cramping yesterday. Was started on BCP. Stated that cramping was worse today. [employer]: 06:38 LMP 02/02/2020 rr5 Historical: - Allergies: 06:38 Hydrocodone-Acetaminophen; rr5 06:38 PENICILLINS; rr5 - Home Meds: 06:38 Metformin Oral [Active]; Naproxen Oral [Active]; rr5 - PMHx: 06:38 Ovarian cyst; Diabetes - NIDDM; rr5 - Immunization history:: Adult Immunizations up to date. - Social history:: Smoking status: unknown Patient/guardian denies using alcohol, street drugs, tobacco products. ROS: 08:27 Eyes: Negative for injury, pain, redness, and discharge, ENT: Negative for injury, jr8 pain, and discharge, Neck: Negative for injury, pain, and swelling, Cardiovascular: Negative for chest pain, palpitations, and edema, Respiratory: Negative for shortness of breath, cough, wheezing, and pleuritic chest pain, Abdomen/GI: Negative for abdominal pain, nausea, vomiting, diarrhea, and constipation, Back: Negative for injury and pain, MS/Extremity: Negative for injury and deformity, Skin: Negative for injury, rash, and discoloration, Neuro: Negative for headache, weakness, numbness, tingling, and seizure. 08:27 : Positive for pelvic pain, vaginal bleeding, menstrual abnormality. Exam: 08:27 Constitutional: This is a well developed, well nourished patient who is awake, alert, jr8 and in no acute distress. Respiratory: Lungs have equal breath sounds bilaterally, clear to auscultation and percussion. No rales, rhonchi or wheezes noted. No increased work of breathing, no retractions or nasal flaring. Abdomen/GI: Soft, non-tender, with normal bowel sounds. No distension or tympany. No guarding or rebound. No evidence of tenderness throughout. Back: No spinal tenderness. No costovertebral tenderness. Full range of motion. Skin: Warm, dry with normal turgor. Normal color with no rashes, no lesions, and no evidence of cellulitis. MS/ Extremity: Pulses equal, no cyanosis. Neurovascular intact. Full, normal range of motion. Neuro: Awake and alert, GCS 15, oriented to person, place, time, and situation. Cranial nerves II-XII grossly intact. Motor strength 5/5 in all extremities. Sensory grossly intact. Cerebellar exam normal. Normal gait. 08:27 : CVA tenderness, is absent, Pelvic Exam: External exam: is normal, no appreciated Bartholin's cyst, no erythema, not excoriated, no evidence of foreign body, no lesions, no ulcerations, no warts seen, Speculum exam: mild bleeding, no cervicitis, os that is open, no tissue in vagina is seen, discharge, is not appreciated, the nurse was present for the exam. Vital Signs: 06:38 BP 112 / 93; Pulse 73; Resp 19; Temp 97; Pulse Ox 100% ; Weight 117.48 kg; Height 5 ft. rr5 2 in. (157.48 cm); Pain 10/10; 07:10 BP 122 / 67; Pulse 70; Resp 18; Pulse Ox 100% ; rr5 08:13 BP 118 / 78; Pulse 74; Resp 18; Pulse Ox 98% on R/A; ph 06:38 Body Mass Index 47.37 (117.48 kg, 157.48 cm) rr5 MDM: 06:37 Patient medically screened[address] [facility] 08:27 Data reviewed: vital signs, nurses notes, lab test result(s), radiologic studies, 8 ultrasound. Data interpreted: Pulse oximetry: on room air is 98 %. Interpretation: normal. Counseling: I had a detailed discussion with the patient and/or guardian regarding: the historical points, exam findings, and any diagnostic results supporting the discharge/admit diagnosis, lab results, radiology results, the need for outpatient follow up, an OB/Gyne specialist, to return to the emergency department if symptoms worsen or persist or if there are any questions or concerns that arise at home. ED course: Patient has no gross hemorrhage from vaginal canal. US consistent with menstrual cycle. Couple of small benign cysts present. Patient started on BCP and knows increase protocol for bleeding by [facility]. Will send home to f/u. Otherwise nothing else needs to be completed emergently. Patient good with this plan . 02/02 06:50 Order name: Basic Metabolic Panel 02/02 06:50 Order name: CBC with Diff 02/02 06:50 Order name: US Transvaginal Study (Probe); Complete Time: 08:18 02/02 06:50 Order name: Basic Metabolic Panel; Complete Time: 08:27 EDMS 02/02 06:50 Order name: CBC with Automated Diff; Complete Time: 07:51 EDMS 02/02 06:52 Order name: Test, Serum; Complete Time: 08:27 02/02 06:50 Order name: Urine Test (obtain specimen); Complete Time: 07:23 02/02 06:50 Order name: IV Saline Lock; Complete Time: 07:09 02/02 06:50 Order name: Labs collected and sent; Complete Time: 07:09 02/02 06:50 Order name: NPO; Complete Time: 07:09 02/02 06:50 Order name: Urine Dipstick-Ancillary (obtain specimen); Complete Time: 07:23 Administered Medications: 07:00 Drug: Zofran (Ondansetron) 4 mg Route: IVP; Site: right forearm; rr5 08:10 Follow up: Response: No adverse reaction ph 07:00 Drug: NS 0.9% 1000 ml Route: IV; Rate: 1000 ml; Site: right forearm; rr5 07:02 Drug: TORadol - Ketorolac 15 mg Route: IVP; Site: right forearm; rr5 08:10 Follow up: Response: No adverse reaction ph 07:23 Drug: morphine 4 mg {Note: rass 0.} Route: IVP; Site: right forearm; rr5 08:10 Follow up: Response: No adverse reaction; Pain is decreased ph 08:50 Drug: morphine 4 mg Route: IVP; Site: right forearm; ph 09:03 Follow up: Response: No adverse reaction; Pain is decreased ph 08:55 Drug: Zofran (Ondansetron) 4 mg Route: IVP; Site: right forearm; ph 09:04 Follow up: Response: No adverse reaction ph Disposition: 02/03/20 08:31 Discharged to Home. Impression: Dysmenorrhea, unspecified. - Condition is Stable. - Discharge Instructions: Dysmenorrhea. - Prescriptions for Zofran 4 mg Oral Tablet - take 1 tablet by ORAL route every 12 hours As needed; 20 tablet. - Medication Reconciliation Form, Thank You Letter, Antibiotic Education, Prescription Opioid Use form. - Follow up: Private Physician; When: 2 - 3 days; Reason: Recheck today's complaints, Continuance of care, Re-evaluation by your physician. - Problem is new. - Symptoms have improved. Addendum: 02/06/2020 19:11 Co-signature as Attending Physician, Dejuan Osborne MD. r n Signatures: Dispatcher [employer] EDMS Dejuan Osborne MD MD rn Roszak, Josh, PA PA jr8 Janet Pate RN RN Ashu Pa RN RN rr5 Corrections: (The following items were deleted from the chart) 02/02 09:06 08:31 02/03/2020 08:31 Discharged to Home. Impression: Dysmenorrhea, unspecified. ph Condition is Stable. Forms are Medication Reconciliation Form, Thank You Letter, Antibiotic Education, Prescription Opioid Use. Follow up: Private Physician; When: 2 - 3 days; Reason: Recheck today's complaints, Continuance of care, Re-evaluation by your physician. Problem is new. Symptoms have improved. jr8
--- NOTE | 2020-02-03 08:32 | ER ---
Nurse's Notes [facility] Name: Yeimy Busby Age: 34 yrs Sex: Female : 1985 Arrival Date: 02/03/2020 Time: 06:27 Bed 18 Private MD: Diagnosis: Dysmenorrhea, unspecified Presentation: 02/02 06:38 Chief complaint: Patient states: yesterday started to have heavy bleeding with clots, rr5 today I am still bleeding and it hurts a lot. went to [facility] they just prescribed me some pain medication and gave appointment. Coronavirus screen: Client denies travel out of the [place] in the last 14 days. At this time, the client does not indicate any symptoms associated with coronavirus-19. Ebola Screen: Patient negative for fever greater than or equal to 101.5 degrees Fahrenheit, and additional compatible Ebola Virus Disease symptoms Patient denies exposure to infectious person. Patient denies travel to an Ebola-affected area in the 21 days before illness onset. Initial Sepsis Screen: Does the patient meet any 2 criteria? No. Patient's initial sepsis screen is negative. Does the patient have a suspected source of infection? No. Patient's initial sepsis screen is negative. Risk Assessment: Do you want to hurt yourself or someone else? Patient reports no desire to harm self or others. Onset of symptoms was February 02, 2020. 06:38 Method Of Arrival: Ambulatory rr5 06:38 Acuity: SARI 3 rr5 [employer]: 06:38 LMP 02/02/2020 rr5 Historical: - Allergies: 06:38 Hydrocodone-Acetaminophen; rr5 06:38 PENICILLINS; rr5 - Home Meds: 06:38 Metformin Oral [Active]; Naproxen Oral [Active]; rr5 - PMHx: 06:38 Ovarian cyst; Diabetes - NIDDM; rr5 - Immunization history:: Adult Immunizations up to date. - Social history:: Smoking status: unknown Patient/guardian denies using alcohol, street drugs, tobacco products. Screenin:44 Abuse screen: Denies threats or abuse. Denies injuries from another. Nutritional rr5 screening: No deficits noted. Tuberculosis screening: No symptoms or risk factors identified. Fall Risk None identified. Total Kent Fall Scale indicates No Risk (0-24 pts). Assessment: 06:38 General: Appears in no apparent distress. uncomfortable, Behavior is calm, cooperative, rr5 crying. Pain: Complains of pain in pelvis Pain currently is 10 out of 10 on a pain scale. Quality of pain is described as aching, Pain began gradually, 1 day ago. Is continuous. Neuro: Level of Consciousness is awake, alert, obeys commands, Oriented to person, place, time, situation. Cardiovascular: Capillary refill < 3 seconds Patient's skin is warm and dry. Respiratory: Airway is patent Respiratory effort is even, unlabored, Respiratory pattern is regular, symmetrical. GI: Abdomen is round obese, Reports lower abdominal pain, nausea, vomiting. : Reports vaginal bleeding that is with clots, heavy flow. EENT: No signs and/or symptoms were reported regarding the EENT system. Derm: Skin is intact, is healthy with good turgor, Skin temperature is warm. Musculoskeletal: No signs and/or symptoms reported regarding the musculoskeletal system. 07:09 Reassessment: urine sample bloody, sent to laboratory for the urine and rr5 dipstick, laboratory staff aware. 08:00 Reassessment: Patient appears in no apparent distress at this time. Patient and/or ph family updated on plan of care and expected duration. Pain level reassessed. Patient is alert, oriented x 3, equal unlabored respirations, skin warm/dry/pink. 09:06 Reassessment: Patient appears in no apparent distress at this time. Patient and/or ph family updated on plan of care and expected duration. Pain level reassessed. Patient is alert, oriented x 3, equal unlabored respirations, skin warm/dry/pink. Vital Signs: 06:38 BP 112 / 93; Pulse 73; Resp 19; Temp 97; Pulse Ox 100% ; Weight 117.48 kg; Height 5 ft. rr5 2 in. (157.48 cm); Pain 10/10; 07:10 BP 122 / 67; Pulse 70; Resp 18; Pulse Ox 100% ; rr5 08:13 BP 118 / 78; Pulse 74; Resp 18; Pulse Ox 98% on R/A; ph 06:38 Body Mass Index 47.37 (117.48 kg, 157.48 cm) rr5 ED Course: 06:27 Patient arrived in ED. ag3 06:37 Shaun Presley PA is PHCP. jr8 06:37 Dejuan Osborne MD is Attending Physician. jr8 06:37 Ashu Amaya, BELLA is Primary Nurse. rr5 06:42 Triage completed. rr5 06:44 Arm band placed on right wrist. rr5 06:44 Patient has correct armband on for positive identification. Bed in low position. Call rr5 light in reach. Pulse ox on. NIBP on. 07:00 Inserted saline lock: 20 gauge in right forearm, using aseptic technique. Blood rr5 collected. 08:02 US Transvaginal Study (Probe) In Process Unspecified. EDMS 08:05 Assist provider with pelvic exam: Set up pelvic tray. Patient tolerated well. Preformed ph by [employer] student per DANIELA Escobar. 09:05 IV discontinued, intact, bleeding controlled, No redness/swelling at site. Pressure ph dressing applied. Administered Medications: 07:00 Drug: Zofran (Ondansetron) 4 mg Route: IVP; Site: right forearm; rr5 08:10 Follow up: Response: No adverse reaction ph 07:00 Drug: NS 0.9% 1000 ml Route: IV; Rate: 1000 ml; Site: right forearm; rr5 07:02 Drug: TORadol - Ketorolac 15 mg Route: IVP; Site: right forearm; rr5 08:10 Follow up: Response: No adverse reaction ph 07:23 Drug: morphine 4 mg {Note: rass 0.} Route: IVP; Site: right forearm; rr5 08:10 Follow up: Response: No adverse reaction; Pain is decreased ph 08:50 Drug: morphine 4 mg Route: IVP; Site: right forearm; ph 09:03 Follow up: Response: No adverse reaction; Pain is decreased ph 08:55 Drug: Zofran (Ondansetron) 4 mg Route: IVP; Site: right forearm; ph 09:04 Follow up: Response: No adverse reaction ph Outcome: 08:31 Discharge ordered by . jr8 09:05 Discharged to home ambulatory, with family. ph 09:05 Condition: good 09:05 Discharge instructions given to patient, Instructed on discharge instructions, follow up and referral plans. medication usage, Demonstrated understanding of instructions, follow-up care, medications, Prescriptions given X 1. 09:06 Patient left the ED. ph Signatures: Dispatcher [employer] EDMS Presley Shaun, PA PA jr8 Janet Pate RN RN Camila Gupta ag3 Ashu Amaya RN RN rr5 Corrections: (The following items were deleted from the chart) 07:16 06:38 GI: Abdomen is round obese, rr5 rr5
[2020-02-03 09:14] VITALS: TEMP 97
[2020-02-03 09:17] VITALS: BP 118/78; O2SAT 98
== END 2020-02-03 09:06 | disposition home or self-care (01) ==
LOC: ER 06:26
DX: N94.6 Dysmenorrhea, unspecified (principal); E11.9 Type 2 diabetes mellitus without complications; Z88.0 Allergy status to penicillin; Z88.5 Allergy status to narcotic agent
CPT/HCPCS: 36415; 76830; 80048; 84703; 85025; 96374; 96375; 99284; J2405; J7030

== ENCOUNTER 2022-09-02 10:30 | Emergency (ER) | payer BC ==
--- OUTSIDE RECORDS SUMMARY | 2022-09-02 10:35 | XMS REPORT | Continuity of Care Document ---
:1985 Author Organization [facility] t Address [address] [facility]. [address] [place] [address] Care Team Providers Name Role Phone GORGE MCNALLY Primary Care Physician Unavailable Scottie Vleez MD Attending Clinician SCOTTIE VELEZ Attending Clinician Unavailable Unknown, Attending Attending Clinician Unavailable Josiah Velez NP Attending Clinician JOSIAH VELEZ Attending Clinician Unavailable VALENTINE GARY Attending Clinician Unavailable Valentine Shi Attending Clinician SACHIN Attending Clinician Unavailable Nitesh WHCristina SORIANO Attending Clinician [phone] CRISTINA DOWLING Attending Clinician Unavailable GORGE MCNALLY Attending Clinician Unavailable Gorge Awan Attending Clinician Doctor Unassigned, [place] Attending Clinician Unavailable MIKE ANN Attending Clinician Unavailable KD PARDO Attending Clinician Unavailable Kd Pardo DO Attending Clinician Popeye [facility] Resident Attending Clinician Unavailable Lukasz Desir MD Attending Clinician Allen Schroeder MD Attending Clinician SACHIN Admitting Clinician Unavailable Payers Payer Name Policy Type Policy Number Effective Date Expiration Date S ource Problems Condition Condition Condition Status Onset Resolution Last Treating Co mments Source Name Details Category Date Date Treatment Clinician Date 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 2-16 ity of mellitus mellitus 00:00: [place] without without 00 Medical complicati complicati Br anch on on Metrorrhag Metrorrhag Disease Active U nivers ia ia 2-08 ity of 00:00: [place] [facility] Vaginal Vaginal Disease Active Univers irritation irritation 2-08 it y of 00:00: [place] [facility] Menorrhagi Menorrhagi Disease Active U nivers a with a with 7-30 ity of regular regular 00:00: [place] cycle cycle 00 Medical Branch Pain Pain Disease Active Univers pelvic pelvic 7-30 ity of 00:00: [place] [facility] Class 3 Class 3 Disease Active Univers severe severe 7-30 ity of obesity obesity 00:00: [place] with body with body 00 [facility] mass index mass index Br anch (BMI) of (BMI) of 45.0 to 45.0 to 49.9 in 49.9 in adult, adult, unspecifie unspecifie d obesity d obesity type, type, unspecifie unspecifie d whether d whether serious serious comorbidit comorbidit y present y present Morbid Morbid Disease Active Univers obesity obesity 7-30 ity of with body with body 00:00: Francis vasquez mass index mass index 00 Me dical (BMI) of (BMI) of Branch 40.0 or 40.0 or higher higher Trichomono Trichomono Disease Active U nivers sis sis 9-20 ity of 00:00: [place] 00 Medical Branch Encounter Encounter Disease Active Uni vers for for 9-17 ity of control control 00:00: [place] pills pills 00 Medical maintenanc maintenanc Br anch e e Screening Screening Disease Active Uni vers examinatio examinatio 9-17 it y of n for STD n for STD 00:00: [place] vasquez (sexually (sexually 00 Medi camila transmitte transmitte Br anch d disease) d disease) Morbid Morbid Disease Active Univers obesity obesity 9-17 ity of 00:00: [place] 00 Medical Branch Irregular Irregular Disease Active Uni vers menstrual menstrual 7-16 ity of cycle cycle 00:00: [place] 00 Medical Branch Ovarian Ovarian Disease Active Overview: Univ ers cyst cyst 7-16 Formattin ity of 00:00: g of this [place] 00 note Medical might be Branch different from the original. Dr Ortiz [place] Dysfunctio Dysfunctio Disease Active U nivers nal nal 6-12 ity of uterine uterine 00:00: [place] bleeding bleeding 00 Medica l Branch Allergies, Adverse Reactions, Alerts Allergy Allergy Status Severity Reaction(s) Onset Inactive Treating Comm ents Source Name Type Date Date Clinician Hydrocod Propensi Active Hives Univer s one ty to 5-22 ity of adverse 00:00: [place] reaction 00 Medical s Branch Penicill Propensi Active Hives Univer s ins ty to 5-22 ity of adverse 00:00: [place] reaction Medical s Branch HYDROCOD DRUG Active Hives Univers ONE INGREDI 5-22 ity of 00:00: [place] 00 Medical Branch PENICILL Drug Active Hives Univers INS Class 5-22 ity of 00:00: [place] 00 Medical Branch Penicill Propensi Active Hives Univer s ins ty to 5-22 ity of adverse 00:00: [place] reaction 00 Medical s Branch Social History Social Habit Start Date Stop Date Quantity Comments Source Exposure to 2022-08-03 2022-08-13 Not sure [facility] SARS-CoV-2 00:00:00 11:31:00 [facility] (event) Branch Alcohol intake 2022-08-13 2022-08-13 Current University 00:00:00 00:00:00 non-drinker of [facility] alcohol (finding) Branch Tobacco use and 2022-06-04 2022-06-04 Smokeless tobacco Un iversity of exposure 00:00:00 00:00:00 non-[address] [facility] Sex Ass[birth year] At [birth year] Universit y of 00:00:00 00:00:[address] [facility] Smoking Status Start Date Stop Date Source Never smoked tobacco [facility] Medications Ordered Filled Start Stop Current Ordering Indication Dosage Frequency Signature Comments Components Source Medication Medication Date Date Medication? Clinician (SIG) Name Name azelastine Yes [id number] 1{spray Use 1 Univers 137 mcg 2-08 } Purmela in ity of (0.1 %) 00:00: each [place] nasal spray 00 nostril in [facility] the Branch morning and 1 Purmela in the evening. Use in each nostril as directed benzonatate 0 Yes [id number] 200mg Take 2 Univers 100 mg 2-08 capsules ity of capsule 00:00: by mouth [place] 00 every 8 Medical (eight) Branch hours as needed for Cough. azelastine 0 Yes [id number] 1{spray Use 1 Univers 137 mcg 2-08 } Purmela in ity of (0.1 %) 00:00: each [place] nasal spray 00 nostril in [facility] the Branch morning and 1 Purmela in the evening. Use in each nostril as directed benzonatate 0 Yes [id number] 200mg Take 2 Univers 100 mg 2-08 capsules ity of capsule 00:00: by mouth [place] 00 every 8 Medical (eight) Branch hours as needed for Cough. terconazole 2021-07- Yes [id number] 80mg Insert 1 Univers 80 mg 2 12-31 Suppositor ity of vaginal 00:00: 05:59 y into [place] suppository 00 :00 vagina at [facility] bedtime Branch for 3 days. metformin 2021-07- No Take by [facility] ers HCl 2-23 12-23 mouth. ity of (METFORMIN 10:28: 00:00 [place] ORAL) 29 :00 Medical Branch metformin 2021-07- No Take by [facility] ers HCl 2-23 12-23 mouth. ity of (METFORMIN 10:28: 00:00 [place] ORAL) 29 :00 Medical Branch metroNIDAZO 2021-07- Yes [id number] 500mg Take 1 Univers LE 500 mg 2-23 12-31 tablet by ity of tablet 00:00: 05:59 mouth [place] 00 :00 every 12 Medical (twelve) Branch hours for 7 days. metroNIDAZO 2021-07- Yes [id number] 500mg Take 1 Univers LE 500 mg 2-23 12-31 tablet by ity of tablet 00:00: 05:59 mouth [place] 00 :00 every 12 Medical (twelve) Branch hours for 7 days. metroNIDAZO 2021-07- Yes [id number] 500mg Take 1 Univers LE 500 mg 2-23 12-31 tablet by ity of tablet 00:00: 05:59 mouth [place] 00 :00 every 12 Medical (twelve) Branch hours for 7 days. terconazole 2021-07- Yes [id number] 80mg Insert 1 Univers 80 mg 08-2827 Suppositor ity of vaginal 00:00: 05:59 y into [place] suppository 00 :00 vagina at [facility] for 3 days. terconazole 2021-07- Yes [id number] 80mg Insert 1 Univers 80 mg 08-2827 Suppositor ity of vaginal 00:00: 05:59 y into [place] suppository 00 :00 vagina at [facility] for 3 days. semaglutide 2021-07 Yes Univer s (OZEMPIC) 2-15 ity of 0.25 mg or 00:00: [place] 0.5 mg(2 00 Medical mg/1.5 mL) Branch PnIj semaglutide 2021-07 Yes Univer s (OZEMPIC) 2-15 ity of 0.25 mg or 00:00: [place] 0.5 mg(2 00 Medical mg/1.5 mL) Branch PnIj semaglutide 2021-07 Yes Univer s (OZEMPIC) 2-15 ity of 0.25 mg or 00:00: [place] 0.5 mg(2 00 Medical mg/1.5 mL) Branch PnIj semaglutide 2021-07 Yes Univer s (OZEMPIC) 2-15 ity of 0.25 mg or 00:00: [place] 0.5 mg(2 00 Medical mg/1.5 mL) Branch PnIj semaglutide 2021-07 Yes Univer s (OZEMPIC) 2-15 ity of 0.25 mg or 00:00: [place] 0.5 mg(2 00 Medical mg/1.5 mL) Branch PnIj MOUNJARO 2021-07 Yes INJECT Univers 2.5 mg/0.5 1-14 UNDER THE ity of mL PnIj 00:00: SKIN [place] 00 DIRECT[facility]. [facility] 2021-07 Yes INJECT Univers 2.5 mg/0.5 1-14 UNDER THE ity of mL PnIj 00:00: SKIN [place] 00 DIRECTED. Medical Branch [facility] 2021-07 Yes INJECT Univers 2.5 mg/0.5 1-14 UNDER THE ity of mL PnIj 00:00: SKIN [place] 00 DIRECTED. Medical Branch JOSE 2021-07- No INJECT Univer s 2.5 mg/0.5 07-19 UNDER THE ity of mL PnIj 00:00: 00:00 SKIN [place] 00 :00 DIRECTED. Medical Branch JOSE 2021-07- No INJECT Univer s 2.5 mg/0.5 07-19 UNDER THE ity of mL PnIj 00:00: 00:00 SKIN [place] 00 :00 DIRECTED. Medical Branch norgestimat Yes [id number] 1{tbl} Take 1 Univers e-ethinyl 2-28 tablet by ity o f estradioL 00:00: mouth [place] 0.25-35 00 daily. Medical mg-mcg per Branch tablet norgestimat Yes [id number] 1{tbl} Take 1 Univers e-ethinyl 2-28 tablet by ity o f estradioL 00:00: mouth [place] 0.25-35 00 daily. Medical mg-mcg per Branch tablet norgestimat Yes [id number] 1{tbl} Take 1 Univers e-ethinyl 2-28 tablet by ity o f estradioL 00:00: mouth [place] 0.25-35 00 daily. Medical mg-mcg per Branch tablet norgestimat 0 Yes [id number] 1{tbl} Take 1 Univers e-ethinyl 2-28 tablet by ity o f estradioL 00:00: mouth [place] 0.25-35 00 daily. Medical mg-mcg per Branch tablet norgestimat 2021- No [id number] 1{tbl} Take 1 Univers e-ethinyl 2-28 12-23 tablet by ity of estradioL 00:00: 00:00 mouth [place] 0.25-35 00 :00 daily. Medical mg-mcg per Branch tablet norgestimat 2021-2021- No [id number] 1{tbl} Take 1 Univers e-ethinyl 2-28 12-23 tablet by ity of estradioL 00:00: 00:00 mouth [place] 0.25-35 00 :00 daily. Medical mg-mcg per Branch tablet terconazole Yes [id number] 1{appli Insert 1 Univers 0.8 % 2-09 cator} Applicator ity of vaginal 00:00: into [place] cream 00 vagina at Medical bedtime. Branch terconazole Yes [id number] 1{appli Insert 1 Univers 0.8 % 2-09 cator} Applicator ity of vaginal 00:00: into [place] cream 00 vagina at Medical bedtime. Branch terconazole Yes [id number] 1{appli Insert 1 Univers 0.8 % 2-09 cator} Applicator ity of vaginal 00:00: into [place] cream 00 vagina at Medical bedtime. Branch terconazole Yes [id number] 1{appli Insert 1 Univers 0.8 % 2-09 cator} Applicator ity of vaginal 00:00: into [place] cream 00 vagina at Medical bedtime. Branch terconazole 202- No [id number] 1{appli Insert 1 Univers 0.8 % 209 06-27 cator} Applicator ity o f vaginal 00:00: 00:00 into [place] cream 00 :00 vagina at Medical bedtime. Branch terconazole 202- No [id number] 1{appli Insert 1 Univers 0.8 % 09 06-27 cator} Applicator ity o f vaginal 00:00: 00:00 into [place] cream 00 :00 vagina at Medical bedtime. Branch metformin Yes Take by Unive rs HCl 7-30 mouth. ity of (METFORMIN 13:40: [place] ORAL) 23 Medical Branch metformin 0 Yes Take by Unive rs HCl 7-30 mouth. ity of (METFORMIN 13:40: [place] ORAL) 23 [facility] Branch metformin 0 Yes Take by Unive rs HCl 7-30 mouth. ity of (METFORMIN 13:40: [place] ORAL) 23 Medical Branch metformin 0 Yes Take by Unive rs HCl 7-30 mouth. ity of (METFORMIN 13:40: [place] ORAL) 23 [facility] Immunizations Ordered Immunization Filled Immunization Date Status Commen ts Source Name Name SARS-COV-2 COVID-19 2020-10-19 Completed Unive rsity of PFIZER VACCINE 00:00:00 [facility] SARS-COV-2 COVID-19 2020-10-19 Completed Unive rsity of PFIZER VACCINE 00:00:00 [facility] Branch SARS-COV-2 COVID-19 2020-10-19 Completed Unive rsity of PFIZER VACCINE 00:00:00 [place] [facility] Branch SARS-COV-2 COVID-19 2020-10-19 Completed Unive rsity of PFIZER VACCINE 00:00:00 [facility] Branch SARS-COV-2 COVID-19 2020-10-19 Completed Unive rsity of PFIZER VACCINE 00:00:00 [place] [facility] Branch SARS-COV-2 COVID-19 2020-10-19 Completed Unive rsity of PFIZER VACCINE 00:00:00 [facility] Branch SARS-COV-2 COVID-19 2020-10-19 Completed Unive rsity of PFIZER VACCINE 00:00:00 [facility] Branch SARS-COV-2 COVID-19 2020-10-19 Completed Unive rsity of PFIZER VACCINE 00:00:00 [facility] Branch SARS-COV-2 COVID-19 2020-10-19 Completed Unive rsity of PFIZER VACCINE 00:00:00 [facility] Branch SARS-COV-2 COVID-19 2020-09-28 Completed Unive rsity of PFIZER VACCINE 00:00:00 [facility] Branch SARS-COV-2 COVID-19 2020-09-28 Completed Unive rsity of PFIZER VACCINE 00:00:00 [facility] Branch SARS-COV-2 COVID-19 2020-09-28 Completed Unive rsity of PFIZER VACCINE 00:00:00 [facility] Branch SARS-COV-2 COVID-19 2020-09-28 Completed Unive rsity of PFIZER VACCINE 00:00:00 [facility] Branch SARS-COV-2 COVID-19 2020-09-28 Completed Unive rsity of PFIZER VACCINE 00:00:00 [facility] Branch SARS-COV-2 COVID-19 2020-09-28 Completed Unive rsity of PFIZER VACCINE 00:00:00 [facility] Branch SARS-COV-2 COVID-19 2020-09-28 Completed Unive rsity of PFIZER VACCINE 00:00:00 [facility] Branch SARS-COV-2 COVID-19 2020-09-28 Completed Unive rsity of PFIZER VACCINE 00:00:00 [place] Medi camila Branch SARS-COV-2 COVID-19 2020-09-28 Completed Unive rsity of PFIZER VACCINE 00:00:00 [facility] HEP B, Adult Dosage 2013-05-13 Completed Unive rsity of 00:00:[address] [facility] HPV 2013-05-13 Completed University of 00:00:[address] [facility] TDAP 2013-05-13 Completed University of 00:00:[address] [facility] HEP B, Adult Dosage 2013-05-13 Completed Unive rsity of 00:00:[address] [facility] HPV 2013-05-13 Completed University of 00:00:00 [facility] Branch TDAP 2013-05-13 Completed University of 00:00:[address] [facility] HEP B, Adult Dosage 2013-05-13 Completed Unive rsity of 00:00:[address] [facility] HPV 2013-05-13 Completed University of 00:00:[address] [facility] TDAP 2013-05-13 Completed University of 00:00:[address] [facility] HEP B, Adult Dosage 2013-05-13 Completed Unive rsity of 00:00:[address] [facility] HPV 2013-05-13 Completed University of 00:00:00 [facility] Branch TDAP 2013-05-13 Completed University of 00:00:[address] [facility] HEP B, Adult Dosage 2013-05-13 Completed Unive rsity of 00:00:[address] [facility] HPV 2013-05-13 Completed University of 00:00:[address] [facility] TDAP 2013-05-13 Completed University of 00:00:[address] [facility] TDAP 2012-07-06 Completed University of 00:00:00 [facility] Branch TDAP 2012-07-06 Completed University of 00:00:00 [facility] Branch TDAP 2012-07-06 Completed University of 00:00:00 [facility] Branch TDAP 2012-07-06 Completed University of 00:00:00 [facility] Branch TDAP 2012-07-06 Completed University of 00:00:00 [facility] Branch TDAP 2012-07-06 Completed University of 00:00:00 [facility] Branch TDAP 2012-07-06 Completed University of 00:00:00 [facility] Branch TDAP 2012-07-06 Completed University of 00:00:00 [facility] Branch TDAP 2012-07-06 Completed University of 00:00:[address] [facility] HPV 2011-05-19 Completed University of 00:00:[address] [facility] Meningococcal 2011-05-19 Completed University of Polysaccharide 00:00:00 [place] Medi camila (groups A, C, Y and Branc h W-135) conjugate vaccine (MCV4P) HPV 2011-05-19 Completed University of 00:00:[address] [facility] Meningococcal 2011-05-19 Completed University of Polysaccharide 00:00:00 [place] Medi camila (groups A, C, Y and Branc h W-135) conjugate vaccine (MCV4P) HPV 2011-05-19 Completed University of 00:00:[address] [facility] Meningococcal 2011-05-19 Completed University of Polysaccharide 00:00:00 [place] Medi camila (groups A, C, Y and Branc h W-135) conjugate vaccine (MCV4P) HPV 2011-05-19 Completed University of 00:00:[address] [facility] Meningococcal 2011-05-19 Completed University of Polysaccharide 00:00:00 [place] Medi camila (groups A, C, Y and Branc h W-135) conjugate vaccine (MCV4P) HPV 2011-05-19 Completed University of 00:00:[address] [facility] Meningococcal 2011-05-19 Completed University of Polysaccharide 00:00:00 [place] Medi camila (groups A, C, Y and Branc h W-135) conjugate vaccine (MCV4P) Hep B, Adol or Pedi 2000-06-18 Completed Unive rsity of Dosage 00:00:00 [facility] Branch Hep B, Adol or Pedi 2000-06-18 Completed Unive rsity of Dosage 00:00:00 [facility] Branch Hep B, Adol or Pedi 2000-06-18 Completed Unive rsity of Dosage 00:00:00 [facility] Branch Hep B, Adol or Pedi 2000-06-18 Completed Unive rsity of Dosage 00:00:00 [facility] Branch Hep B, Adol or Pedi 2000-06-18 Completed Unive rsity of Dosage 00:00:00 [facility] Branch Hep B, Adol or Pedi 2000-04-08 Completed Unive rsity of Dosage 00:00:00 [facility] Branch Hep B, Adol or Pedi 2000-04-08 Completed Unive rsity of Dosage 00:00:00 [facility] Branch Hep B, Adol or Pedi 2000-04-08 Completed Unive rsity of Dosage 00:00:00 [facility] Branch Hep B, Adol or Pedi 2000-04-08 Completed Unive rsity of Dosage 00:00:[address] [facility] Hep B, Adol or Pedi 2000-04-08 Completed Unive rsity of Dosage 00:00:[address] [facility] Vital Signs Vital Name Observation Time Observation Value Comments Source Systolic blood 2022-08-13 17:36:00 125 mm[Hg] Univer sity of pressure [facility] Diastolic blood 2022-08-13 17:36:00 86 mm[Hg] Unive rsity of pressure [facility] Heart rate 2022-08-13 17:36:00 74 /min Universi ty of [facility] Body temperature 2022-08-13 17:36:00 37 Lalita Univ ersity of [facility] Branch Respiratory rate 2022-08-13 17:36:00 18 /min Univ ersity of [facility] Body height 2022-08-13 17:36:00 157.5 cm Universi ty of [facility] Body weight 2022-08-13 17:36:00 122.244 kg Universi ty of [facility] BMI 2022-08-13 17:36:00 49.29 kg/m2 Universi ty of [facility] Oxygen saturation in 2022-08-13 17:36:00 97 /min University of Arterial blood by [facility] Pulse oximetry Branch Systolic blood 2022-06-27 16:12:00 112 mm[Hg] Univer sity of pressure [facility] Diastolic blood 2022-06-27 16:12:00 74 mm[Hg] Unive rsity of pressure [facility] Heart rate 2022-06-27 16:12:00 82 /min Universi ty of [facility] Body temperature 2022-06-27 16:12:00 36.94 Lalita Univ ersity of [facility] Respiratory rate 2022-06-27 16:12:00 18 /min Univ ersity of [facility] Body weight 2022-06-27 16:12:00 124.286 kg Universi ty of [facility] BMI 2022-06-27 16:12:00 50.12 kg/m2 Universi ty of [facility] Branch Systolic blood 2022-06-04 22:14:00 127 mm[Hg] Univer sity of pressure [place] [facility] Diastolic blood 2022-06-04 22:14:00 85 mm[Hg] Unive rsity of pressure [facility] Heart rate 2022-06-04 22:13:00 74 /min Universi ty of [facility] Body temperature 2022-06-04 22:13:00 36.5 Lalita [facility] [place] Respiratory rate 2022-06-04 22:13:00 18 /min [facility] [place] Body weight 2022-06-04 22:13:00 125.147 kg Universi ty of [facility] BMI 2022-06-04 22:13:00 50.46 kg/m2 Universi ty of [facility] Oxygen saturation in 2022-06-04 22:13:00 99 /min [facility] Arterial blood by [facility] Pulse oximetry Branch Systolic blood 2021-09-02 20:43:00 138 mm[Hg] Univer sity of pressure [facility] Diastolic blood 2021-09-02 20:43:00 78 mm[Hg] Unive rsity of pressure [facility] Heart rate 2021-09-02 20:43:00 82 /min Universi ty of [facility] Body temperature 2021-09-02 20:43:00 36.39 Lalita [facility] Respiratory rate 2021-09-02 20:43:00 18 /min [facility] Body height 2021-09-02 20:43:00 157.5 cm Universi ty of [facility] Body weight 2021-09-02 20:43:00 120.827 kg Universi ty [facility] BMI 2021-09-02 20:43:00 48.72 kg/m2 [facility] Procedures Procedure Date / Time Performed Performing Clinician Geraldo coleman POCT MOLECULAR STREP 2022-08-13 17:42:00 Unknown, Attending [facility] POCT MOLECULAR STREP 2022-06-04 22:12:00 Unknown, Attending [facility] POCT TEST 2021-09-02 20:46:00 Cristina Dowling [facility] Encounters Start End Encounter Admission Attending Care Care Encounter Source Date/Time Date/Time Type Type Clinicians Facility Department ID 2022-08-14 2022-08-14 HUBER Garcia [id number] Univers 00:00:00 00:00:00 (Out) Scottie [facility] [id number] it y of [facility] [id number] Conor as KULDEEP?BLEA [id number] [address] MEDICAL OFFICE [facility] 2022-08-13 2022-08-13 Outpatient R SANGITA [facility] [id number] Univers 11:20:00 12:20:22 SCOTTIE miriam [facility] 2022-08-13 2022-08-13 Urgent Scottie Velez [facility] [id number] Univers 11:20:00 11:40:00 Care Unknown, Attending HEALTH [id number] ity of [place] [id number] Conor as KULDEEP?BLEA [id number] [address] OFFICE [facility] 2022-07-01 2022-07-01 Telephone [facility] [id number] Univers 00:00:00 00:00:00 Josiah CASTRO [id number] it y of [place] [id number] [place] [id number] [address] 2022-06-27 2022-06-27 Outpatient R JOSIAH VELEZ [facility] B [id number] [facility] 10:00:00 10:25:29 JOSIAH VELEZ [facility] 2022-06-27 2022-06-27 Office [facility] [id number] Univers 10:00:00 10:25:29 Visit Josiah GLORIA [id number] it y [place] [id number] [place] [id number] [address] 2022-06-04 2022-06-04 Outpatient R COOKIE [facility] [id number] Univers 16:00:00 16:33:07 VALENTINE waite f [facility] 2022-06-04 2022-06-04 Urgent Valentine Gary [facility] [id number]. [id number] Univers 16:00:00 16:33:07 Care Unknown, [facility] [id number] ity of [place] [id number] Conor as KULDEEP?BLEA [phone] [address] OFFICE [facility] 2022-06-04 2022-06-04 Letter [facility] [place] [id number] Univers 00:00:00 00:00:00 (Out) [facility] [id number] i ty of [place] [id number] Conor as KULDEEP?BLEA [phone] [address] OFFICE [facility] 2022-06-03 2022-06-03 Outpatient R JOSIAH VELEZ [facility] B [id number] Univers 14:00:00 14:00:00 JOSIAH VELEZ [facility] 2022-01-17 2022-01-17 Outpatient EVELYN [place] [id number] [place] 02:52:00 02:52:00 [facility] 2021-09-02 2021-09-02 Office [facility] [place] [id number] Univers 14:15:00 15:12:02 Visit Cristina Cali [employer] [id number] ity [facility] [id number] Conor as MATERNAL [phone] Med ical & CHILD [address] [place] [address] 2021-09-02 2021-09-02 Outpatient R NITESH [facility] [id number] Univers 14:15:00 15:12:02 CRISTINA waite [facility] 2021-09-02 2021-09-02 Outpatient R NITESH [facility] [id number] Univers 14:15:00 14:15:[address] [facility] [place] 2021-08-28 2021-08-28 Outpatient Jean-Pierre MCNALLY [facility] [id number] Univers 13:00:00 13:00:00 GORGE waite [facility] 2021-08-28 2021-08-28 Outpatient Jean-Pierre MCNALLY [facility] [id number] Univers 10:00:00 10:00:00 PAOLANDKrys garretty o f [facility] 2021-08-28 2021-08-28 Outpatient Jean-Pierre MCNALLY [facility] [id number] Univers 10:00:00 10:00:00 PAOLANDA ity o f [facility] [place] 2021-08-14 2021-08-14 Telephone [facility] [id number] Univers 00:00:00 00:00:00 Rossarahia R [employer] [id number] ity of REGIONAL [id number] Conor as MATERNAL [phone] Med ical & CHILD [address] [place] [address] 2021-08-14 2021-08-14 Telephone [facility] [place] [id number] Univers 00:00:00 00:00:00 Rosnda R [employer] [id number] ity of REGIONAL [id number] Conor as MATERNAL [phone] Med ical & CHILD [address] [place] [address] 2021-08-13 2021-08-13 Outpatient [facility] [id number] Univers 10:30:00 11:55:29 PAOLANDA ity o f [facility] 2021-08-13 2021-08-13 Office [facility] [place] [id number] Univers 10:30:00 11:55:29 Visit Heathermarcellaa R [employer] [id number] ity of REGIONAL [id number] Conor as MATERNAL [phone] [facility] ical & CHILD [address] [place] [address] 2021-08-13 2021-08-13 Orders Doctor SOSA [id number] Univers 00:00:00 00:00:00 Only Unassigned, BRENDAN [id number] ity of [place] [facility] [id number] Conor as [phone] [address] 2021-03-14 2021-03-14 Outpatient R MCNALLY, [facility] [id number] Univers 09:00:00 09:00:00 PAOLANDA gerryy o f [facility] [place] 2021-02-05 2021-02-05 Outpatient Jean-Pierre MCNALLY [facility] [id number] Univers 08:45:00 08:45:00 PAOLANDA gerryy o f [facility] [place] 2021-01-10 2021-01-10 Outpatient Jean-Pierre MCNALLY [facility] [id number] Univers 08:45:00 08:45:00 PAOLANDA gerryy o f [facility] [place] 2021-01-09 2021-01-09 Telephone [facility] [place] [id number] Univers 00:00:00 00:00:00 Roshunda R [employer] [id number] ity [facility] [id number] Conor as MATERNAL [phone] [facility] & CHILD [address] [place] [address] 2020-12-13 2020-12-13 Outpatient Jean[facility]Pierre [facility] [id number] Univers 08:45:00 08:45:00 PAOLANDA miriam o [facility] 2020-10-19 2020-10-19 Outpatient R SETH [facility] [id number] Univers 08:40:00 08:47:49 MIKE ity [facility] 2020-10-19 2020-10-19 Outpatient R SETH [facility] [id number] Univers 08:40:00 08:47:49 [facility] 2020-10-12 2020-10-12 Telephone [facility] [id number] Univers 00:00:00 00:00:00 Rosnda R [employer] [id number] ity [facility] [id number] Conor as MATERNAL [phone] [facility] ical & CHILD [address] [place] [address] 2020-10-10 2020-10-10 Office [facility] [place] [id number] Univers 08:13:01 08:47:45 Visit Rosnda R [employer] [id number] ity of REGIONAL [id number] Conor as MATERNAL [phone] Med ical & CHILD [address] [place] [address] 2020-10-10 2020-10-10 [facility] [id number] Univers 08:00:00 08:00:00 GORGE ity o f [facility] [place] 2020-09-28 2020-09-28 Outpatient R [facility] [id number] Univers 08:40:00 08:49:59 KD ity of [facility] [place] 2020-09-25 2020-09-25 Patient [facility] [place] [id number] Univers 00:00:00 00:00:00 Outreach Kd [facility] [id number] i ty of [facility] [id number] [place] [phone] [address] 2020-03-16 2020-03-16 Office Pool, [facility]ident [facility] [id number] [id number] Univers 09:00:46 10:16:22 Visit Lukasz Desir [facility] [id number] it[id number] [id number] [address] 2020-03-16 2020-03-16 Outpatient R [facility] [id number] Univers 09:00:00 09:00:[address] [facility] [place] 2020-02-17 2020-02-17 Office [place], [facility] 1.2.8 [id number] [id number] Univers 10:12:23 12:31:54 Visit Allen Schroeder [facility] [id number] it[id number] [phone] [address] 2020-02-17 2020-02-17 Outpatient R [facility] [id number] Univers 10:00:00 10:00:[address] [facility] [place] 2020-02-17 2020-02-17 Orders Doctor SOSA [id number] Univers 00:00:00 00:00:00 Only Unassigned, BRENDAN [id number] ity of [facility] [id number] Conor as [phone] [address] 2020-02-02 2020-02-02 Office Dali MAELISEO [id number] 12:51:44 13:39:32 Visit [facility] [employer] 350.1.13.10 REGIONAL [id number] MATERNAL [phone] & CHILD [address] [place] [address] 2020-02-02 2020-02-02 Office Dali [facility] [id number] Univers 12:51:44 13:39:32 Visit [facility] [employer] [id number] ity of [facility] [id number] Conor as MATERNAL [phone] Med ical & CHILD [address] [place] [address] 2020-02-02 2020-02-02 Outpatient R DALI [facility] [id number] Univers 12:45:00 12:45:00 OGRGE pineda o f [facility] [place] 2020-02-02 2020-02-02 Orders Doctor SHEILA [id number] Univers 00:00:00 00:00:00 Only Unassigned, BRENDAN [id number] ity of [place] [facility] [id number] Conor as [phone] [address] Results Test Description Test Time Test Comments Results Result Comments Source POCT MOLECULAR STREP 2022-08-13 17:50:02 Test Item Value Reference Range Interpretation Comme nts POCT Molecular Strep (test code = 20786-9) Negative Negative Lab Interpretation (test code = 07796-2) Normal [facility] MOLECULAR [id number] 22:19:58 Test Item Value Reference Range Interpretation Comments POCT Molecular Strep (test code = Negative Negative 35042-6) Lab Interpretation (test code = Normal 23130-5) [facility] MOLECULAR [id number] 22:19:58 Test Item Value Reference Range Interpretation Comments POCT Molecular Strep (test code = Negative Negative 98741-5) Lab Interpretation (test code = Normal 02158-6) [facility] [id number] 20:46:00 Test Item Value Reference Range Interpretation Comments POCT PREG (test code = 1605) Negative On board controls acceptable with C Yes Line (test code = 3574) POCT PREG LOT # (test code = 3575) POCT PREG TEST DATE (test code = 3576) [facility]
[2022-09-02 11:16] LABS: Absolute Lymphocytes (CBC) 2.2 K/uL (0.7-4.9); Hematocrit 42.6 % (36.0-45.0); Lymphocytes % 22.2 % (15.3-44.8); MCV 85.2 fL (80-100); MPV 7.9 fL (7.6-11.3); RBC Red Blood Cell Count 4.99 M/uL (3.86-4.86)
[2022-09-02 11:29] LABS: Potassium 4.1 mmol/L (3.5-5.1)
[2022-09-02] MEDS ORDERED: METOCLOPRAMIDE 10 MG/2mL INJ ONE (11:42)
--- NOTE | 2022-09-02 11:42 | RAD REPORT ---
EXAM DESCRIPTION: CT - Head Brain Wo Cont - 09/02/2022 11:17 am CLINICAL HISTORY: HEADACHE Slurred speech COMPARISON: No comparisons TECHNIQUE: Noncontrast head CT images ad were obtained without IV contrast. Multiplanar reformats we re generated and reviewed. All CT scans are performed using dose optimization technique as appropriate and may include automated exposure control or mA/KV adjustment according to patient size. FINDINGS: No intracranial hemorrhage, mass, or edema. Incidentally noted partially empty sella. Midl ine structures are otherwise unremarkable. Normal ventricular caliber for age. Nguyen-white matter differentiation is preserved, without evidence of acute infarct. No abnormal extra- axial fluid collections. Mastoid air cells well aerated. Mucous retention cyst within the right maxillary sinus. No acute bony findings. IMPRESSION: No evidence of an acute intracranial process. Incidentally noted partially empty sella. In the appropriate clinical setting, this could relate to i ncreased intracranial pressure. Please correlate clinically.
[2022-09-02] MEDS ORDERED: INSULIN -REGULAR HUMAN 50 UNIT/0.5 ML ML ONE (11:43)
[2022-09-02] MEDS ORDERED: NA CHLORIDE 0.9% 1,000 ML ONE (11:43)
[2022-09-02 12:04] LABS: Urine Blood Negative (Negative); Urine Glucose Negative (Negative); Urine Protein Negative (Negative); Urine Specific Gravity 1.025 (1.005-1.030); Urine pH 5.5 (5.0-7.0)
--- NOTE | 2022-09-02 12:04 | RAD REPORT ---
EXAM DESCRIPTION: MRI - Brain Wo Cont - 09/02/2022 11:47 am CLINICAL HISTORY: headache, right sided paresthesias COMPARISON: Head CT of earlier the same day TECHNIQUE: Multiplanar multisequence MRI of the brain performed without IV contrast. FINDINGS: Motion artifact somewhat limits evaluation, despite attempts at repeat imaging. No evidence of acute infarct or other diffusion signal abnormality. No evidence of acute intracranial hemorrhage or abnormal extra-axial fluid collections. Ventricular caliber within normal for age. Incidentally noted partially empty sella. Midline structur es are otherwise unremarkable. No appreciable white matter signal abnormalities. No mass effect or midline shift. Major vascular flow voids are preserved. Mastoid air cells are clear. Mucous retention cyst in the right maxillary sinus. IMPRESSION: No acute intracranial process. No evidence of ventriculomegaly. Incidentally noted partially empty sella, which could relate to increased intracranial pressure in th e appropriate clinical setting.
[2022-09-02 12:10] LABS: Urine Specific Gravity/Preg 1.025 (1.005-1.030)
--- NOTE | 2022-09-02 12:44 | ER ---
Nurse's Notes [facility] Name: Yeimy Busby Age: 36 yrs Sex: Female : 1985 Arrival Date: 09/02/2022 Time: 10:33 Bed 8 Private MD: Diagnosis: Hyperglycemia, unspecified;Headache;Paresthesia of skin Presentation: 09/02 10:37 Chief complaint: Patient states: 225 yesterday, and today ranging from 189-199 with a vg1 headache today. N/V yesterday. Stated slurred speech and tingling to right side of face that happened yesterday from 1685-3281 TRIAGE BGL 181. Coronavirus screen: Vaccine status: Patient reports receiving the 2nd dose of the covid vaccine. Client denies travel out of the [place] in the last 14 days. Ebola Screen: Patient negative for fever greater than or equal to 101.5 degrees Fahrenheit, and additional compatible Ebola Virus Disease symptoms Patient denies exposure to infectious person. Initial Sepsis Screen: Does the patient meet any 2 criteria? No. Patient's initial sepsis screen is negative. Does the patient have a suspected source of infection? No. Patient's initial sepsis screen is negative. Risk Assessment: Do you want to hurt yourself or someone else? Patient reports no desire to harm self or others. Onset of symptoms was September 02, 2022. 10:37 Method Of Arrival: Ambulatory vg1 10:37 Acuity: SARI 3 vg1 Triage Assessment: 10:40 General: Appears in no apparent distress. comfortable, Behavior is calm, cooperative. vg1 Pain: Complains of pain in HEAD. Neuro: Level of Consciousness is awake, alert, obeys commands, Oriented to person, place, time, situation, Traffic Signal Technician are equal bilaterally Moves all extremities. Gait is steady, Speech is normal, Facial symmetry appears normal. 10:42 Derm: Skin is pink, warm \T\ dry. 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 - Social history:: Smoking status: Patient denies any tobacco usage or history of. Screenin:43 [facility] ED Fall Risk Assessment (Adult) History of falling in the last 3 months, vg1 including since admission No falls in past 3 months (0 pts) Confusion or Disorientation No (0 pts) Intoxicated or Sedated No (0 pts) Impaired Gait No (0 pts) Mobility Assist Device Used No (0 pt) Altered Elimination No (0 pt) Score/Fall Risk Level 0 - 2 = Low Risk Oriented to surroundings, Maintained a safe environment, Educated pt \T\ family on fall prevention, incl call for assistance when getting out of bed, Assessed \T\ reinforced patient's understanding of fall precautions. Abuse screen: Denies threats or abuse. Denies injuries from another. Nutritional screening: No deficits noted. Tuberculosis screening: No symptoms or risk factors identified. Assessment: 11:51 Reassessment: No changes from previously documented assessment. gait steady to restroom.ll1 12:50 Reassessment: No changes from previously documented assessment. Patient and/or family ll1 updated on plan of care and expected duration. Pain level reassessed. Patient is alert, oriented x 3, equal unlabored respirations, skin warm/dry/pink. Vital Signs: 10:37 BP 124 / 80; Pulse 79; Resp 18; Temp 98.1(TE); Pulse Ox 100% on R/A; Weight 124.28 kg; vg1 Height 5 ft. 2 in. (157.48 cm); Pain 9/10; 12:57 BP 124 / 85; Pulse 73; Resp 17; Pulse Ox 98% on R/A; ll1 10:37 Body Mass Index 50.11 (124.28 kg, 157.48 cm) vg1 ED Course: 10:33 Patient arrived in ED. mr 10:39 Santos Rodrigues PA is PHCP. jmm 10:39 Dejuan Osborne MD is Attending Physician. jmm 10:40 Triage completed. vg1 11:09 BMP Sent. ss 11:09 CBC with Diff Sent. ss 11:18 CT Head Brain wo Cont In Process Unspecified. EDMS 11:35 Alea Worthy, BELLA is Primary Nurse. ll1 11:42 MRI - Brain Wo Cont In Process Unspecified. EDMS 11:51 Arm band placed on Patient placed in an exam room, on a stretcher. ll1 12:43 Maged Lam MD is Referral Physician. [facility] 12:55 No provider procedures requiring assistance completed. ll1 12:55 Patient has correct armband on for positive identification. Bed in low position. Call ll1 light in reach. Client placed on continuous cardiac and pulse oximetry monitoring. NIBP monitoring applied. 13:05 IV discontinued, intact, bleeding controlled, No redness/swelling at site. Pressure ll1 dressing applied. Administered Medications: 11:33 CANCELLED (Duplicate Order): Insulin Regular Human 10 units IVP once [facility] 12:03 Drug: NS 0.9% 1000 ml Route: IV; Rate: 1 bolus; Site: right antecubital; ll1 13:05 Follow up: Response: No adverse reaction; IV Status: Completed infusion; IV Intake: ll1 1000ml 12:04 Drug: Reglan (metoCLOPramide) 10 mg Route: IVP; Site: right antecubital; ll1 13:05 Follow up: Response: No adverse reaction; Nausea is decreased ll1 12:04 Drug: Insulin Regular Human 5 units {Co-Signature: vg1 (Aster Anderson RN).} Route: ll1 IVP; Site: right antecubital; 13:05 Follow up: Response: No adverse reaction 1 Medication: 12:56 VIS not applicable for this client. ll1 Intake: 13:05 IV: 1000ml; Total: 1000ml. ll1 Outcome: 12:43 Discharge ordered by MD. [facility] 12:55 Discharged to home ambulatory. 1 12:55 Condition: stable 12:55 Discharge instructions given to patient, Instructed on discharge instructions, follow up and referral plans. Demonstrated understanding of instructions, follow-up care. 13:06 Patient left the ED. 1 Signatures: Dispatcher [employer] EDMS Santos Rodrigues PA PA Beti Alvarado Shelby, Aster Rothman RN, RN RN vg1 Alea Worthy RN RN ll1 Aster Anderson RN vg1 Corrections: (The following items were deleted from the chart) 10:42 10:37 Chief complaint: Patient states: 225 yesterday, and today ranging from 189-199 vg1 with a headache today. N/V yesterday TRIAGE BGL 181 vg1 10:43 10:40 Neuro: Level of Consciousness is awake, alert, obeys commands, Oriented to vg1 person, place, time, situation, vg1
--- NOTE | 2022-09-02 12:44 | EDPHYS ---
Physician Documentation [facility] Name: Yeimy Busby Age: 36 yrs Sex: Female : 1985 Arrival Date: 09/02/2022 Time: 10:33 Bed 8 Private MD: ED Physician Dejuan Osborne HPI: 09/02 10:47 This 36 yrs old Female presents to ER via Ambulatory with complaints of High jmm Blood Sugar. 10:47 This is a 36 year old female with a history of dm, that presents to the ED with jmm complaints of headache, weakness, numbness beginning yesterday. Numbness has resolved but patient continues to have headache. States also having difficulty lowering her BGL due to change in prescribed medication. . 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 - Social history:: Smoking status: Patient denies any tobacco usage or history of. ROS: 10:47 Constitutional: Negative for fever, chills, and weight loss, Cardiovascular: Negative jmm for chest pain, palpitations, and edema, Respiratory: Negative for shortness of breath, cough, wheezing, and pleuritic chest pain. 10:47 Neuro: Positive for headache, numbness. 10:47 All other systems are negative. Exam: 10:47 Constitutional: This is a well developed, well nourished patient who is awake, alert, jmm and in no acute distress. Head/Face: atraumatic. Eyes: EOMI, no conjunctival erythema appreciated ENT: Moist Mucus Membranes Neck: Trachea midline, Supple Chest/axilla: Normal chest wall appearance and motion. Cardiovascular: Regular rate and rhythm. No edema appreciated Respiratory: Normal respirations, no respiratory distress appreciated Abdomen/GI: Non distended Back: Normal ROM Skin: General appearance color normal MS/ Extremity: Moves all extremities, no obvious deformities appreciated, no edema noted to the lower extremities Neuro: Awake and alert Psych: Behavior is normal, Mood is normal, Patient is cooperative and pleasant Vital Signs: 10:37 BP 124 / 80; Pulse 79; Resp 18; Temp 98.1(TE); Pulse Ox 100% on R/A; Weight 124.28 kg; vg1 Height 5 ft. 2 in. (157.48 cm); Pain 9/10; 12:57 BP 124 / 85; Pulse 73; Resp 17; Pulse Ox 98% on R/A; ll1 10:37 Body Mass Index 50.11 (124.28 kg, 157.48 cm) [facility] MDM: 10:47 Patient medically screened. [facility] 12:42 Data reviewed: vital signs, nurses notes. [facility] 09/02 10:52 Order name: CBC with Diff; Complete Time: 11:17 [facility] 09/02 10:52 Order name: BMP; Complete Time: 11:32 [facility] 09/02 10:52 Order name: Saline Lock; Complete Time: 11:09 [facility] 09/02 10:52 Order name: CT Head Brain wo Cont; Complete Time: 11:44 [facility] 09/02 10:52 Order name: MRI - Brain Wo Cont; Complete Time: 12:06 [facility] 09/02 10:52 Order name: Glucose, Ancillary Testing; Complete Time: 10:52 EDMS 09/02 12:04 Order name: Urine Dipstick-Ancillary; Complete Time: 12:06 EDMS 09/02 12:08 Order name: Urine --Ancillary (enter results); Complete Time: 12:14 09/02 13:03 Order name: Glucose, Ancillary Testing; Complete Time: 13:03 EDMS Administered Medications: 11:33 CANCELLED (Duplicate Order): Insulin Regular Human 10 units IVP once [facility] 12:03 Drug: NS 0.9% 1000 ml Route: IV; Rate: 1 bolus; Site: right antecubital; 1 13:05 Follow up: Response: No adverse reaction; IV Status: Completed infusion; IV Intake: ll1 1000ml 12:04 Drug: Reglan (metoCLOPramide) 10 mg Route: IVP; Site: right antecubital; 1 13:05 Follow up: Response: No adverse reaction; Nausea is decreased [facility] 12:04 Drug: Insulin Regular Human 5 units {Co-Signature: vg1 (Aster Anderson RN).} Route: ll1 IVP; Site: right antecubital; 13:05 Follow up: Response: No adverse reaction ll1 Disposition: 16:30 Co-signature as Attending Physician, Dejuan Osborne MD. rn Disposition Summary: 09/02/22 12:43 Discharge Ordered Location: Home jmm Condition: Stable jmm Diagnosis - Hyperglycemia, unspecified jmm - Headache jmm - Paresthesia of skin jmm Followup: [facility] - With: Maged Lam MD - When: 2 - 3 days - Reason: Recheck today's complaints, Continuance of care, Re-evaluation by your physician Discharge Instructions: - Discharge Summary Sheet jmm - General Headache Without Cause jmm - Hyperglycemia jmm - Paresthesia jmm Forms: - Work release form jmm - Medication Reconciliation Form jmm - Thank You Letter jmm - Antibiotic Education jmm - Prescription Opioid Use jmm Signatures: Dispatcher [employer] EDSantos Skinner PA PA jmm Nieto, Roman, MD MD rn Garcia, Victoria, RN RN vg1 Alea Worthy RN RN 1 Aster Anderson RN vg1 Corrections: (The following items were deleted from the chart) 11:33 10:52 Insulin Regular Human 10 units IVP once ordered. jmm jmm
== END 2022-09-02 13:06 | disposition home or self-care (01) ==
LOC: ER 10:30
DX: R51.9 Headache, unspecified (principal); E11.65 Type 2 diabetes mellitus with hyperglycemia; R20.2 Paresthesia of skin; Z88.0 Allergy status to penicillin; Z88.5 Allergy status to narcotic agent
CPT/HCPCS: 85025; 80048; 36415; 81025; 82947 ×2; 81003; 70450; 70551; J2765; J1815; J7030

== ENCOUNTER 2024-04-30 09:14 | Emergency (ER) | payer OTHER ==
--- OUTSIDE RECORDS SUMMARY | 2024-04-30 09:18 | XMS REPORT | Continuity of Care Document ---
Author Name Unknown Address [address] [facility]. [address] [place] [address] [facility] thconnect Address [address] [facility] [address] [place] [address] Care Team Providers Care Cutting And Boning Supervisor Name Role Phone Gorge Awan Primary Care Physician Un available MYRIAM ABRAHAM Attending Clinician Unavailab SHAE Diaz Attending Clinician Unavailable LAB90 Attending Clinician Unavailable TISH GALVEZ Attending Clinician UnavailTish Shields Attending Clinician [phone] Unknown, Attending Attending Clinician Unavailab le Doctor Unassigned, [place] Attending Clinician U navailable [email or web address]_S Attending Clinician Unavaila Scottie Turner MD Attending Clinician [phone] SCOTTIE VELEZ Attending Clinician Unavailable Josiah Velez NP Attending Clinician [phone] JOSIAH VELEZ Attending Clinician UnavailVALENTINE Sinha Attending Clinician UnavailValentine Fernandez Attending Clinician [phone] SACHIN Attending Clinician Unavailab Cristina Jaime Attending Clinician + CRISTINA DOWLING Attending Clinician Unavail able GORGE MCNALLY Attending Clinician Unavailab Heather Padillahunda R Attending Clinician + [phone] MIKE ANN Attending Clinician Unavailable KD PARDO Attending Clinician Unavail Kd Vail DO Attending Clinician [phone] Pope[facility] Resident Attending Clinician UnavailLukasz Lucas MD Attending Clinician [phone] Allen Schroeder MD Attending Clinician [phone] [email or web address]_S Admitting Clinician Unavaila cuco SENIKEJaredCoeltteISHAN Admitting Clinician Unavailab ugo Payers Payer Name Policy Type Policy Number Effective Date Expirati on Date Source [facility] RAE SMITH COPAY FOCUS 9 [id number] 2023 00:00:00 [employer] [id number] 2022 00:00:00 Problems Condition Name Condition Details Condition Category Status Onset Date Resolution Date Last Treatment Date Treating Clinician Comments Source Type 2 diabetes mellitus with hyperglyce briana, without long-term current use of insulin (multi HCC) Type 2 diabetes mellitus with hyperglyce briana, without long-term current use of insulin (multi HCC) Disease Active 02-25 00:00: 00 Sarah douglas Other chest pain Other chest pain Disease Active 02-25 00:00: 00 Sarah Jolly - Tam douglas Type 2 diabetes mellitus without complicati on Type 2 diabetes mellitus without complicati on Disease Active 2021-07 2-16 00:00: 00 [facility] Metrorrhag ia Metrorrhag ia Disease Active 2-08 00:00: 00 [facility] Vaginal irritation Vaginal irritation Disease Active 2-08 00:00: 00 [facility] Menorrhagi a with regular cycle Menorrhagi a with regular cycle Disease Active 02-01 00:00: 00 [facility] Pain pelvic Pain pelvic Disease Active 02-01 00:00: 00 [facility] Class 3 severe obesity with body mass index (BMI) of 45.0 to 49.9 in adult, unspecifie d obesity type, unspecifie d whether serious comorbidit y present Class 3 severe obesity with body mass index (BMI) of 45.0 to 49.9 in adult, unspecifie d obesity type, unspecifie d whether serious comorbidit y present Disease Active 02-01 00:00: 00 [facility] Morbid obesity with body mass index (BMI) of 40.0 or higher Morbid obesity with body mass index (BMI) of 40.0 or higher Disease Active 02-01 00:00: 00 [facility] Trichomono sis Trichomono sis Disease Active 03-25 00:00: 00 [facility] Encounter for control pills maintenanc e Encounter for control pills maintenanc e Disease Active 03-22 00:00: 00 [facility] Screening examinatio n for STD (sexually transmitte d disease) Screening examinatio n for STD (sexually transmitte d disease) Disease Active 03-22 00:00: 00 [facility] Morbid obesity Morbid obesity Disease Active 03-22 00:00: 00 [facility] Irregular menstrual cycle Irregular menstrual cycle Disease Active 01-18 00:00: 00 [facility] Ovarian cyst Ovarian cyst Disease Active 01-18 00:00: 00 Overview: Formattin g of this note might be different from the original. Dr Ortiz in [facility] Dysfunctio nal uterine bleeding Dysfunctio nal uterine bleeding Disease Active 12-15 00:00: 00 [facility] Allergies, Adverse Reactions, Alerts Allergy Name Allergy Type Status Severity Reaction(s) Onset Date Inactive Date Treating Clinician Comments Source Hydrocod one-Acet aminophe n Propensi ty to adverse reaction s Active Itching 2015-07 0-05 00:00: 00 Sarah douglas HYDROCOD ONE DRUG INGREDI Active Hives 11-24 00:00: 00 [facility] PENICILL INS Drug Class Active Hives 11-24 00:00: 00 [facility] Penicill ins Propensi ty to adverse reaction s Active Hives 11-24 00:00: 00 [facility] Penicill ins Propensi ty to adverse reaction s Active Hives 11-24 00:00: 00 Sarah Turcios l Hydrocod one Propensi ty to adverse reaction s Active Hives 11-24 00:00: 00 [facility] Penicill ins Propensi ty to adverse reaction s Active Hives 11-24 00:00: 00 [facility] Social History Social Habit Start Date Stop Date Quantity Comments Source 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 Shanae - External History of Social function 2024-02-26 00:00:00 2024-02-26 00:00:00 Sarah Jolly - External Alcohol Comment 2024-02-26 00:00:00 2024-02-26 00:00:00 ocassional Sarah Jolly - External Tobacco use and exposure 2024-02-26 00:00:00 2024-02-26 00:00:00 Smokeless tobacco non-user Sarah Jolly - External Alcoholic beverage intake 2024-02-26 00:00:00 2024-02-26 00:00:00 Current drinker of alcohol (finding) Sarah Jolly - External Alcohol intake 2023-07-11 00:00:00 2023-07-11 00:00:00 Current non-drinker of alcohol (finding) [facility] Exposure to SARS-CoV-2 (event) 2022-08-03 00:00:00 2022-08-13 11:31:00 Not sure [facility] Sex assigned at 1985 00:00:00 1985 00:00:00 Sarah Jolly - External Smoking Status Start Date Stop Date Source Never smoked tobacco Sarah Jolly - External Medications Ordered Medication Name Filled Medication Name Start Date Stop Date Current Medication? Ordering Clinician Indication Dosage Frequency Signature (SIG) Comments Components Source Trulicity 0.75 MG/0.5ML subcutaneou s Solution Pen-injecto r 02-25 00:00: 00 Yes [id number] .75mg Q1W Inject 0.75 mg into the skin once a week. Sarah Senaa l Metformin HCl 500 MG oral Tablet 02-25 00:00: 00 Yes [id number] 500mg Take 1 tablet (500 mg total) by mouth in the morning and 1 tablet (500 mg total) in the evening. Take with meals. Sarah douglas Glucose Blood in vitro Strip 02-25 00:00: 00 Yes [id number] 1{each} Q.5D 1 each by other route 2 times daily. Sarah douglas Metformin HCl 500 MG oral Tablet 02-17 00:00: 00 02-25 00:00 :00 No 500mg Take 1 tablet (500 mg total) by mouth in the morning and 1 tablet (500 mg total) in the evening. Take with meals. Sarah douglas methylPREDN ISolone (MEDROL, NANCY,) 4 mg tablets 07-09 00:00: 00 Yes [id number] Take by mouth SEE-INSTRU CTIONS. follow package directions [facility] bromphenira mine-pseudo ephedrine-D M (BROMFED DM) 2-30-10 mg/5 mL syrup 07-09 00:00: 00 07-20 05:59 :00 No [id number] 5mL Take 5 mL by mouth 4 (four) times daily as needed for Cold symptoms for up to 10 days. [facility] azelastine 137 mcg (0.1 %) nasal spray 08-13 00:00: 00 Yes [id number] 1{spray } Use 1 [place] in each nostril in the morning and 1 [place] in the evening. Use in each nostril as directed [facility] benzonatate 100 mg capsule 08-13 00:00: 00 Yes [id number] 200mg Take 2 capsules by mouth every 8 (eight) hours as needed for Cough. [facility] terconazole 80 mg vaginal suppository 2021-07 00:00: 00 07-05 05:59 :00 No [id number] 80mg Insert 1 Suppositor y into vagina at bedtime for 3 days. [facility] metformin HCl (METFORMIN ORAL) 2021-07 10:28: 29 06-27 00:00 :00 No Take by mouth. [facility] metroNIDAZO LE 500 mg tablet 2021-07 00:00: 00 07-05 05:59 :00 No [id number] 500mg Take 1 tablet by mouth every 12 (twelve) hours for 7 days. [facility] terconazole 80 mg vaginal suppository 2021-07 00:00: 00 07-01 05:59 :00 No [id number] 80mg Insert 1 Suppositor y into vagina at bedtime for 3 days. [facility] semaglutide (OZEMPIC) 0.25 mg or 0.5 mg(2 mg/1.5 mL) [facility] 2021-07 2 00:00: 00 Yes [facility] MOUNJARO 2.5 mg/0.5 mL [facility] 2021-07 114 00:00: 00 06-27 00:00 :00 No INJECT UNDER THE SKIN DIRECTED. [facility] norgestimat e-ethinyl estradioL 0.25-35 mg-mcg per tablet 09-02 00:00: 00 06-27 00:00 :00 No [id number] 1{tbl} Take 1 tablet by mouth daily. [facility] terconazole 0.8 % vaginal cream 2 00:00: 00 06-27 00:00 :00 No [id number] 1{appli cator} Insert 1 Applicator into vagina at bedtime. [facility] metformin HCl (METFORMIN ORAL) 30 13:40: 23 Yes Take by mouth. [facility] Immunizations Ordered Immunization Name Filled Immunization Name Date Status Comments Source SARS-COV-2 COVID-19 PFIZER VACCINE 2020-10-19 00:00:00 Completed [facility] SARS-COV-2 COVID-19 PFIZER VACCINE 2020-10-19 00:00:00 Completed [facility] SARS-COV-2 COVID-19 PFIZER VACCINE 2020-10-19 00:00:00 Completed [facility] SARS-COV-2 COVID-19 PFIZER VACCINE 2020-10-19 00:00:00 Completed [facility] SARS-COV-2 COVID-19 PFIZER VACCINE 2020-10-19 00:00:00 Completed [facility] SARS-COV-2 COVID-19 PFIZER VACCINE 2020-10-19 00:00:00 Completed [facility] SARS-COV-2 COVID-19 PFIZER VACCINE 2020-10-19 00:00:00 Completed [facility] SARS-COV-2 COVID-19 PFIZER VACCINE 2020-10-19 00:00:00 Completed [facility] SARS-COV-2 COVID-19 PFIZER VACCINE 2020-09-28 00:00:00 Completed [facility] SARS-COV-2 COVID-19 PFIZER VACCINE 2020-09-28 00:00:00 Completed [facility] SARS-COV-2 COVID-19 PFIZER VACCINE 2020-09-28 00:00:00 Completed [facility] SARS-COV-2 COVID-19 PFIZER VACCINE 2020-09-28 00:00:00 Completed [facility] SARS-COV-2 COVID-19 PFIZER VACCINE 2020-09-28 00:00:00 Completed [facility] SARS-COV-2 COVID-19 PFIZER VACCINE 2020-09-28 00:00:00 Completed [facility] SARS-COV-2 COVID-19 PFIZER VACCINE 2020-09-28 00:00:00 Completed [facility] SARS-COV-2 COVID-19 PFIZER VACCINE 2020-09-28 00:00:00 Completed [facility] HEP B, Adult Dosage 2013-05-13 00:00:00 Completed [facility] HPV 2013-05-13 00:00:00 Completed [facility] TDAP 2013-05-13 00:00:00 Completed [facility] HEP B, Adult Dosage 2013-05-13 00:00:00 Completed [facility] HPV 2013-05-13 00:00:00 Completed [facility] TDAP 2013-05-13 00:00:00 Completed [facility] HEP B, Adult Dosage 2013-05-13 00:00:00 Completed [facility] HPV 2013-05-13 00:00:00 Completed [facility] TDAP 2013-05-13 00:00:00 Completed [facility] HEP B, Adult Dosage 2013-05-13 00:00:00 Completed [facility] HPV 2013-05-13 00:00:00 Completed [facility] TDAP 2013-05-13 00:00:00 Completed [facility] HEP B, Adult Dosage 2013-05-13 00:00:00 Completed [facility] HPV 2013-05-13 00:00:00 Completed [facility] TDAP 2013-05-13 00:00:00 Completed [facility] TDAP 2012-07-06 00:00:00 Completed [facility] TDAP 2012-07-06 00:00:00 Completed [facility] TDAP 2012-07-06 00:00:00 Completed [facility] TDAP 2012-07-06 00:00:00 Completed [facility] TDAP 2012-07-06 00:00:00 Completed [facility] TDAP 2012-07-06 00:00:00 Completed [facility] TDAP 2012-07-06 00:00:00 Completed [facility] TDAP 2012-07-06 00:00:00 Completed [facility] HPV 2011-05-19 00:00:00 Completed [facility] Meningococcal Polysaccharide (groups A, C, Y and W-135) conjugate vaccine (MCV4P) 2011-05-19 00:00:00 Completed [facility] HPV 2011-05-19 00:00:00 Completed [facility] Meningococcal Polysaccharide (groups A, C, Y and W-135) conjugate vaccine (MCV4P) 2011-05-19 00:00:00 Completed [facility] HPV 2011-05-19 00:00:00 Completed [facility] Meningococcal Polysaccharide (groups A, C, Y and W-135) conjugate vaccine (MCV4P) 2011-05-19 00:00:00 Completed [facility] HPV 2011-05-19 00:00:00 Completed [facility] Meningococcal Polysaccharide (groups A, C, Y and W-135) conjugate vaccine (MCV4P) 2011-05-19 00:00:00 Completed [facility] HPV 2011-05-19 00:00:00 Completed [facility] Meningococcal Polysaccharide (groups A, C, Y and W-135) conjugate vaccine (MCV4P) 2011-05-19 00:00:00 Completed [facility] Hep B, Adol or Pedi Dosage 2000-06-18 00:00:00 Completed [facility] Hep B, Adol or Pedi Dosage 2000-06-18 00:00:00 Completed [facility] Hep B, Adol or Pedi Dosage 2000-06-18 00:00:00 Completed [facility] Hep B, Adol or Pedi Dosage 2000-06-18 00:00:00 Completed [facility] Hep B, Adol or Pedi Dosage 2000-06-18 00:00:00 Completed [facility] Hep B, Adol or Pedi Dosage 2000-04-08 00:00:00 Completed [facility] Hep B, Adol or Pedi Dosage 2000-04-08 00:00:00 Completed [facility] Hep B, Adol or Pedi Dosage 2000-04-08 00:00:00 Completed [facility] Hep B, Adol or Pedi Dosage 2000-04-08 00:00:00 Completed [facility] Hep B, Adol or Pedi Dosage 2000-04-08 00:00:00 Completed [facility] TDAP Unknown Completed [facility] SARS-COV-2 COVID-19 PFIZER VACCINE Unknown Completed [facility] HEP B, Adult Dosage Unknown Completed [facility] Hep B, Adol or Pedi Dosage Unknown Completed [facility] HPV Unknown Completed [facility] Meningococcal Polysaccharide (groups A, C, Y and W-135) conjugate vaccine (MCV4P) Unknown Completed [facility] TDAP Unknown Completed [facility] SARS-COV-2 COVID-19 PFIZER VACCINE Unknown Completed [facility] HEP B, Adult Dosage Unknown Completed [facility] Hep B, Adol or Pedi Dosage Unknown Completed [facility] HPV Unknown Completed [facility] Meningococcal Polysaccharide (groups A, C, Y and W-135) conjugate vaccine (MCV4P) Unknown Completed [facility] Vital Signs Vital Name Observation Time Observation Value Comments S ource Systolic blood pressure 2024-02-26 19:53:00 128 mm[Hg] Sarah Esquivelybo ld - External Diastolic blood pressure 2024-02-26 19:53:00 70 mm[Hg] Sarah Esquivelybo ld - External Heart rate 2024-02-26 19:53:00 95 /min Kel y Seybold - External Body temperature 2024-02-26 19:53:00 36.67 Lalita Sarah Seybold - External Respiratory rate 2024-02-26 19:53:00 20 /min Sarah Seybold - External Body height 2024-02-26 19:53:00 157.5 cm Camille ey Seybold - External Body weight 2024-02-26 19:53:00 127.007 kg Camille ey Seybold - External BMI 2024-02-26 19:53:00 51.21 kg/m2 Camille ey Seybold - External Oxygen saturation in Arterial blood by Pulse oximetry 2024-02-26 19:53:00 98 /min Sarah Esquivelybo ld - External Systolic blood pressure 2023-07-10 02:34:00 121 mm[Hg] [facility] Diastolic blood pressure 2023-07-10 02:34:00 80 mm[Hg] [facility] Heart rate 2023-07-10 02:34:00 87 /min [facility] Body temperature 2023-07-10 02:34:00 36.5 Lalita [facility] Respiratory rate 2023-07-10 02:34:00 20 /min [facility] Body height 2023-07-10 02:34:00 157.5 cm [facility] Body weight 2023-07-10 02:34:00 124.558 kg [facility] BMI 2023-07-10 02:34:00 50.22 kg/m2 [facility] Oxygen saturation in Arterial blood by Pulse oximetry 2023-07-10 02:34:00 99 /min [facility] Systolic blood pressure 2022-08-13 17:36:00 125 mm[Hg] [facility] Diastolic blood pressure 2022-08-13 17:36:00 86 mm[Hg] [facility] Heart rate 2022-08-13 17:36:00 74 /min [facility] Body temperature 2022-08-13 17:36:00 37 Lalita [facility] Respiratory rate 2022-08-13 17:36:00 18 /min [facility] Body height 2022-08-13 17:36:00 157.5 cm [facility] 2022-08-13 17:36:00 122.244 kg [facility] BMI 2022-08-13 17:36:00 49.29 kg/m2 [facility] Oxygen saturation in Arterial blood by Pulse oximetry 2022-08-13 17:36:00 97 /min [facility] Systolic blood pressure 2022-06-27 16:12:00 112 mm[Hg] [facility] Diastolic blood pressure 2022-06-27 16:12:00 74 mm[Hg] [facility] Heart rate 2022-06-27 16:12:00 82 /min [facility] Body temperature 2022-06-27 16:12:00 36.94 Lalita [facility] Respiratory rate 2022-06-27 16:12:00 18 /min [facility] Body weight 2022-06-27 16:12:00 124.286 kg [facility] BMI 2022-06-27 16:12:00 50.12 kg/m2 [facility] Systolic blood pressure 2022-06-04 22:14:00 127 mm[Hg] [facility] Diastolic blood pressure 2022-06-04 22:14:00 85 mm[Hg] [facility] Heart rate 2022-06-04 22:13:00 74 /min [facility] Body temperature 2022-06-04 22:13:00 36.5 Lalita [facility] Respiratory rate 2022-06-04 22:13:00 18 /min [facility] Body weight 2022-06-04 22:13:00 125.147 kg [facility] BMI 2022-06-04 22:13:00 50.46 kg/m2 [facility] Oxygen saturation in Arterial blood by Pulse oximetry 2022-06-04 22:13:00 99 /min [facility] Systolic blood pressure 2021-09-02 20:43:00 138 mm[Hg] [facility] Diastolic blood pressure 2021-09-02 20:43:00 78 mm[Hg] [facility] Heart rate 2021-09-02 20:43:00 82 /min [facility] Body temperature 2021-09-02 20:43:00 36.39 Lalita [facility] Respiratory rate 2021-09-02 20:43:00 18 /min [facility] Body height 2021-09-02 20:43:00 157.5 cm [facility] Body weight 2021-09-02 20:43:00 120.827 kg [facility] BMI 2021-09-02 20:43:00 48.72 kg/m2 [facility] Procedures Procedure Date / Time Performed Performing Clinicia n Source POCT MOLECULAR STREP 2023-07-10 02:50:00 Unknown, Attjared miramontes [facility] POCT SARS-COV-2 ANTIGEN (BINAX NOW) 2023-07-10 02:45:00 Tish Galvez [facility] ASSIGNMENT OF BENEFITS 2023-07-10 02:07:35 Docto r Unassigned, [place] [facility] POCT MOLECULAR STREP 2022-08-13 17:42:00 Unknown, Prakash miramontes [facility] POCT MOLECULAR STREP 2022-06-04 22:12:00 Unknown, Attjared miramontes [facility] POCT TEST 2021-09-02 20:46:00 Eulogio Dowlnig [facility] Encounters Start Date/Time End Date/Time Encounter Type Admission Type Attending Clinicians Care Facility Care Department Encounter ID Source 2024-05-12 16:30:00 2024-05-12 16:30:00 Outpatient MYRIAM ABRAHAM [id number] Sarah Jolly 2024-04-30 00:00:00 2024-04-30 00:00:00 Outpatient SHAE ESPITIA [id number] [facility] 2024-04-15 11:30:00 2024-04-15 11:30:00 Outpatient MYRIAM ABRAHAM [id number] [facility] 2024-03-28 16:30:00 2024-03-28 16:30:00 Outpatient MYRIAM ABRAHAM SARAH [id number] [facility] 2024-03-16 00:00:00 2024-03-16 00:00:00 Outpatient MYRIAM ABRAHAM SARAH [id number] [facility] 2024-03-14 07:55:00 2024-03-14 07:55:00 Outpatient LAB90 SARAH SARAH [id number] [facility] 2024-03-06 00:00:00 2024-03-06 00:00:00 Outpatient MYRIAM ABRAHAM SARAH [id number] [facility] 2024-02-29 08:10:00 2024-02-29 08:10:00 Outpatient LAB90 SARAH VELA [id number] [facility] 2024-02-26 15:00:00 2024-02-26 15:00:00 Outpatient MYRIAM ABRAHAM SARAH [id number] [facility] 2024-02-19 11:30:00 2024-02-19 11:30:00 Outpatient MYRIAM ABRAHAM SARAH [id number] [facility] 2023-07-09 20:00:00 2023-07-09 21:11:26 Outpatient R TISH GALVEZ [facility] [id number] [facility] 2023-07-09 20:00:00 2023-07-09 21:11:26 Urgent Care Leo Lenkakimmyjeb Unknown, Attending [facility] [id number] [facility] 2023-07-09 00:00:00 2023-07-09 00:00:00 Orders Only Doctor Unassigned, [place] [facility] [id number] [id number] [facility] 2023-05-02 00:00:00 2023-05-02 00:00:00 Outpatient GC_GCBZW_Ka diyala_S PRIV [facility] [id number] [facility] 2022-08-14 00:00:00 2022-08-14 00:00:00 Letter (Out) [facility] [id number] [id number] [facility] 2022-08-13 11:20:00 2022-08-13 12:20:22 Outpatient R SCOTTIE VELEZ [facility] [id number] [facility] 2022-08-13 11:20:00 2022-08-13 11:40:00 Urgent Care Scottie Velez, Attending [facility] [id number] [id number] [facility] 2022-08-13 00:00:00 2022-08-13 00:00:00 Letter (Out) Scottie Velez [facility] [id number] [id number] [id number] [id number] [facility] 2022-07-01 00:00:00 2022-07-01 00:00:[address] [facility] 1.114 [id number] [id number] [id number] [facility] 2022-06-27 10:00:00 2022-06-27 10:25:29 Outpatient R JOSIAH VELEZ CHERYAL [facility] [id number] [facility] 2022-06-27 10:00:00 2022-06-27 10:25:29 Office Visit Josiah Velez [facility] 1..840.114 [id number] [id number] [facility] 2022-06-04 16:00:00 2022-06-04 16:33:07 Outpatient R VALENTINE GARY [facility] [id number] [facility] 2022-06-04 16:00:00 2022-06-04 16:33:07 Urgent Care Valentine Gary Unknown, Attending [facility] 1..840.114 350.1.13.10 [id number] [id number] [facility] 2022-06-04 00:00:00 2022-06-04 00:00:00 Letter (Out) Valentine Gary [facility] [id number] 350.1.13.10 4.2.7.2.686 [id number] [facility] 2022-06-03 14:00:00 2022-06-03 14:00:00 Outpatient R JOSIAH VELEZ CHERYAL [facility] [id number] [facility] 2022-01-17 02:52:00 2022-01-17 02:52:00 Outpatient EVELYN DUQUE [id number] Gina anthony [facility] 2021-09-02 14:15:00 2021-09-02 15:12:02 Office Visit Cristina Dowling [facility] [employer] [facility] [id number] 350.1.13.10 4.2.7.2.686 [id number] [facility] 2021-09-02 14:15:00 2021-09-02 15:12:02 Outpatient R CRISTINA DOWLING [facility] [id number] [facility] 2021-09-02 14:15:00 2021-09-02 14:15:00 Outpatient R CRISTINA DOWLING [facility] [id number] [facility] 2021-08-28 13:00:00 2021-08-28 13:00:00 Outpatient Jean-Pierre MCNALLYGORGE [facility] [id number] [facility] 2021-08-28 10:00:00 2021-08-28 10:00:00 Outpatient HEATHER LARABONNIE [facility] [id number] [facility] 2021-08-28 10:00:00 2021-08-28 10:00:00 Outpatient HEATHER LARABONNIE [facility] [id number] [facility] 2021-08-14 00:00:00 2021-08-14 00:00:00 Telephone Gorge Mcnally [facility] [employer] 1..840.114 350.1.13.10 4.2.7.2.686 [id number] [facility] 2021-08-14 00:00:00 2021-08-14 00:00:00 Telephone McnallyGorge [facility] [employer] 1..840.114 350.1.13.10 4.2.7.2.686 [id number] [facility] 2021-08-13 10:30:00 2021-08-13 11:55:29 Outpatient Jean-Pierre MCNALLYGORGE [facility] [id number] [facility] 2021-08-13 10:30:00 2021-08-13 11:55:29 Office Visit McnallyGorge [facility] 1..840.114 350.1.13.10 4.2.7.2.686 [id number] [facility] 2021-08-13 00:00:00 2021-08-13 00:00:00 Orders Only Doctor Unassigned, [place] [facility] 1..840.114 350.1.13.10 4.2.7.2.686 [id number] [facility] 2021-03-14 09:00:00 2021-03-14 09:00:00 Outpatient R GORGE MCNALLY [facility] [id number] [facility] 2021-02-05 08:45:00 2021-02-05 08:45:00 Outpatient R GORGE MCNALLY [facility] [id number] [facility] 2021-01-10 08:45:00 2021-01-10 08:45:00 Outpatient GORGE LARA [facility] [id number] [facility] 2021-01-09 00:00:00 2021-01-09 00:00:00 Telephone Gorge Mcnally [facility] [employer] [facility] 1..840.114 350.1.13.10 4.2.7.2.686 [id number] [facility] 2020-12-13 08:45:00 2020-12-13 08:45:00 Outpatient GORGE LARA [facility] [id number] [facility] 2020-10-19 08:40:00 2020-10-19 08:47:49 Outpatient MIKE SINGH [facility] [id number] [facility] 2020-10-19 08:40:00 2020-10-19 08:47:49 Outpatient MIKE SINGH [facility] [id number] [facility] 2020-10-12 00:00:00 2020-10-12 00:00:00 Telephone Gorge Mcnally [facility] [employer] [facility] 1.2.840.114 350.1.13.10 4.2.7.2.686 [id number] [facility] 2020-10-10 08:13:01 2020-10-10 08:47:45 Office Visit Gorge Mcnally [facility] [employer] [facility] 1.2.840.114 350.1.13.10 4.2.7.2.686 [id number] [facility] 2020-10-10 08:00:00 2020-10-10 08:00:00 Outpatient R HEATHER MCNALLYNANYSOHAILKrys [facility] [id number] [facility] 2020-09-28 08:40:00 2020-09-28 08:49:59 Outpatient R KD PARDO [facility] [id number] [facility] 2020-09-25 00:00:00 2020-09-25 00:00:00 Patient Outreach Kd Pardo John [facility] 1.2.840.114 350.1.13.10 4.2.7.2.686 [id number] [facility] 2020-03-16 09:00:46 2020-03-16 10:16:22 Office Visit [place], [facility] Resident Lukasz Desir [facility] 1..840.114 350.1.13.10 4.2.7.2.686 [id number] [facility] 2020-03-16 09:00:00 2020-03-16 09:00:00 Outpatient R [facility] [id number] [facility] 2020-02-17 10:12:23 2020-02-17 12:31:54 Office Visit [place], [facility] Resident Allen Schroeder [facility] 1.2840.114 350.1.13.10 4.2.7.2.686 [id number] [facility] 2020-02-17 10:00:00 2020-02-17 10:00:00 Outpatient R [facility] [id number] [facility] 2020-02-17 00:00:00 2020-02-17 00:00:00 Orders Only Doctor Unassigned, [place] [facility] 1.2840.114 350.1.13.10 4.2.7.2.686 [id number] [facility] 2020-02-02 12:51:44 2020-02-02 13:39:32 [facility] 1.2840.114 350.1.13.10 4.2.7.2.686 [id number] 2020-02-02 12:51:44 2020-02-02 13:39:32 Office Visit [place] [facility] [employer] [facility] 1.2.840.114 350.1.13.10 4.2.7.2.686 [id number] [facility] 2020-02-02 12:45:00 2020-02-02 12:45:00 Outpatient R HEATHER MCNALLYBONNIE [facility] [id number] [facility] 2020-02-02 00:00:00 2020-02-02 00:00:00 Orders Only Doctor Unassigned, [place] [facility] 1.284.114 350.1.13.10 4.2.7.2.686 [id number] [facility] Results Test Description Test Time Test Comments Results Result Co [id number] 02:57:20* Test Item Value Reference Range Interpretation Comme nts POCT Molecular Strep (test c ode = 48579-1) Negative Negative Lab Interpretation (test cod e = 13617-1) Normal [facility] MOLECULAR [id number] 17:50:02* Test Item Value Reference Range Interpretation Comme nts POCT Molecular Strep (test c ode = 74374-5) Negative Negative Lab Interpretation (test cod e = 06043-9) Normal [facility] MOLECULAR [id number] 22:19:58* Test Item Value Reference Range Interpretation Comme nts POCT Molecular Strep (test c ode = 95883-3) Negative Negative Lab Interpretation (test cod e = 84006-6) Normal [facility] MOLECULAR [id number] 22:19:58* Test Item Value Reference Range Interpretation Comme nts POCT Molecular Strep (test c ode = 86964-1) Negative Negative Lab Interpretation (test cod e = 57967-6) Normal [facility] [id number] 20:46:00* Test Item Value Reference Range Interpretation Comme nts POCT PREG (test code = 1605) Negative On board controls acceptable with C Line (test code = 3574) Yes POCT PREG LOT # (test code = 3575) POCT PREG TEST DATE ( test code = 3576) [facility]
--- NOTE | 2024-04-30 09:25 | EDPHYS ---
Physician Documentation [facility] Name: Yeimy Busby Age: 38 yrs Sex: Female : 1985 Arrival Date: 04/30/2024 Time: 09:14 Bed IW1 Private MD: ED Physician Jonel Walls HPI: 04/30 09:28 This 38 yrs old Female presents to ER via Ambulatory with complaints of Arm kb Pain - left x1wk. 09:28 Pt is a 38 year old female who presents for left arm pain that started 8 days ago. kb States it started during game night, but she didn't have an injury or trauma. Pain began as soreness in proximal forearm, then spread to shoulder. States the pain has increased since onset and she cannot get comfortable because of it. Denies fever. States she had it massaged and had "cups" done yesterday that made it worse. . Historical: - Allergies: 09:22 Hydrocodone-Acetaminophen; tm6 09:22 PENICILLINS; tm6 - Home Meds: 09:22 Metformin [Active]; Trulicity subcutaneous [Active]; tm6 - PMHx: 09:22 diabetes mellitus; tm6 - Immunization history:: Client reports receiving the 2nd dose of the Covid vaccine. - Infectious Disease History:: Denies. - Social history:: Smoking status: Patient denies any tobacco usage or history of. ROS: 09:28 Constitutional: As per HPI kb Exam: 09:28 Constitutional: This is a well developed, well nourished patient who is awake, alert, kb and in no acute distress. Head/Face: Normocephalic, atraumatic. ENT: Moist Mucous membranes Cardiovascular: Regular rate Respiratory: Respirations even and unlabored. No increased work of breathing. Talking in full sentences Skin: Warm, dry with normal turgor. Normal color. Neuro: Awake and alert, GCS 15, oriented to person, place, time, and situation. 09:28 Back: pain, that is very mild, of the left trapezius, 09:28 Musculoskeletal/extremity: Extremities: grossly normal except: noted in the left arm: pain, tenderness, point tenderness to tricep area and just below elbow. No bony tenderness, ROM: limited active range of motion due to pain, Circulation is intact in all extremities. Sensation intact. Vital Signs: 09:20 BP 120 / 98; Pulse 86; Resp 16; Pulse Ox 100% on R/A; tm6 09:23 Weight 111.58 kg; Height 5 ft. 2 in. ; Pain 10/10; tm6 09:25 Temp 98.4(O); tm6 09:23 Body Mass Index 44.99 (111.58 kg, 157.48 cm) tm6 09:23 Pain Scale: Adult tm6 MDM: 09:18 Medical Screening Exam initiated kb 09:33 Differential diagnosis: tendonitis, strain, radiculopathy. Data reviewed: vital signs, kb nurses notes. Test considered but Not performed: X-ray: xray considered but pt has no bony tenderness. Counseling: I had a detailed discussion with the patient and/or guardian regarding the historical points, exam findings, and any diagnostic results supporting the discharge/admit diagnosis, the need for outpatient follow up, a family practitioner, to return to the emergency department if symptoms worsen or persist or if there are any questions or concerns that arise at home. Administered Medications: 09:31 Drug: Dexamethasone IM 10 mg IM once Route: IM; Site: right gluteus; tm6 09:35 Follow up: Response: Medication Administered at Departure tm6 09:32 Drug: Ketorolac IM 30 mg IM once Route: IM; Site: left gluteus; tm6 09:35 Follow up: Response: Medication Administered at Departure tm6 Disposition Summary: 04/30/24 09:24 Discharge Ordered Notes: Location: Home Condition: Stable kb Diagnosis - Pain in left arm kb Followup: kb - With: Emergency Department - When: As needed - Reason: Worsening of condition Followup: kb - With: Private Physician - When: 2 - 3 days - Reason: Recheck today's complaints, Continuance of care, Re-evaluation by your physician Discharge Instructions: - Discharge Summary Sheet kb - Musculoskeletal Pain kb - Pinched Nerve kb Forms: - Medication Reconciliation Form kb - Antibiotic Education kb - Prescription Opioid Use kb - Patient Portal Instructions kb - Leadership Thank You Letter Prescriptions: - Diclofenac Sodium 75 mg Oral tablet, delayed release (enteric coated) - take 1 tablet ORAL route 2 times per day As needed; 30 tablet; Refills: 0, kb Product Selection Permitted - orphenadrine citrate 100 mg Oral Tablet Sustained Release - take 1 tablet ORAL route 2 times per day As needed; 20 tablet; Refills: 0, kb Product Selection Permitted Signatures: Monica Pierre, PRESENTATION SPECIALIST-C PRESENTATION SPECIALIST-Giorgio Gutierrez, RN RN tm6
--- NOTE | 2024-04-30 09:25 | ER ---
Nurse's Notes [facility] Name: Yeimy Busby Age: 38 yrs Sex: Female : 1985 Arrival Date: 04/30/2024 Time: 09:14 Bed IW1 Private MD: Diagnosis: Pain in left arm Presentation: 04/30 09:20 Chief complaint: Patient states: pain to L shoulder down to L elbow x 1 week after tm6 "game night." No specific injury. Coronavirus screen: Client denies travel out of the [place] in the last 14 days. Ebola Screen: Patient denies exposure to infectious person. Patient denies travel to an Ebola-affected area in the 21 days before illness onset. Initial Sepsis Screen: Does the patient meet any 2 criteria? No. Patient's initial sepsis screen is negative. Does the patient have a suspected source of infection? No. Patient's initial sepsis screen is negative. Risk Assessment: Do you want to hurt yourself or someone else? Patient reports no desire to harm self or others. Note Pt had a family member perform "cupping" to affected area and believes that it made the pain worse. Onset of symptoms was April 29, 2024. 09:20 Method Of Arrival: Ambulatory tm6 09:20 Acuity: SARI 5 tm6 Historical: - Allergies: 09:22 Hydrocodone-Acetaminophen; tm6 09:22 PENICILLINS; tm6 - Home Meds: 09:22 Metformin [Active]; Trulicity subcutaneous [Active]; tm6 - PMHx: 09:22 diabetes mellitus; tm6 - Immunization history:: Client reports receiving the 2nd dose of the Covid vaccine. - Infectious Disease History:: Denies. - Social history:: Smoking status: Patient denies any tobacco usage or history of. Screenin:24 Abuse screen: Denies threats or abuse. Denies injuries from another. Nutritional tm6 screening: No deficits noted. Tuberculosis screening: Never had TB. Assessment: 09:23 Pain: Complains of pain in L shoulder, L upper arm Pain currently is 10 out of 10 on a tm6 pain scale. Quality of pain is described as aching, tender. Neuro: Level of Consciousness is awake, alert, obeys commands, Oriented to person, place, time, situation. Respiratory: Airway is patent Respiratory effort is even, unlabored, Respiratory pattern is regular, symmetrical. EENT: Nares are clear. Derm: Skin is intact, is healthy with good turgor, Skin is dry, Skin is pink, warm \\T\\ dry. normal. Musculoskeletal: Range of motion: intact in all extremities. Vital Signs: 09:20 BP 120 / 98; Pulse 86; Resp 16; Pulse Ox 100% on R/A; tm6 09:23 Weight 111.58 kg; Height 5 ft. 2 in. ; Pain 10/10; tm6 09:25 Temp 98.4(O); tm6 09:23 Body Mass Index 44.99 (111.58 kg, 157.48 cm) tm6 09:23 Pain Scale: Adult tm6 ED Course: 09:18 Patient arrived in ED. ra3 09:18 Monica Pierre FNP-C [facility] kb 09:18 Jonel Walls MD is Attending Physician. kb 09:22 Triage completed. tm6 09:22 Arm band placed on right wrist. tm6 09:24 Patient has correct armband on for positive identification. tm6 09:24 No provider procedures requiring assistance completed. Patient did not have IV access tm6 during this emergency room visit. 09:27 Linda Bowman, RN is Primary Nurse. ss Administered Medications: 09:31 Drug: Dexamethasone IM 10 mg IM once Route: IM; Site: right gluteus; tm6 09:35 Follow up: Response: Medication Administered at Departure tm6 09:32 Drug: Ketorolac IM 30 mg IM once Route: IM; Site: left gluteus; tm6 09:35 Follow up: Response: Medication Administered at Departure tm6 Medication: 09:23 VIS not applicable for this client. tm6 Outcome: 09:24 Discharge ordered by . kb 09:35 Discharged to home ambulatory, tm6 09:35 Condition: good 09:35 Discharge instructions given to patient, Instructed on discharge instructions, follow up and referral plans. medication usage, Demonstrated understanding of instructions, follow-up care, medications, Prescriptions given X 2, 09:36 Patient left the ED. tm6 Signatures: Monica Pierre FNP-C FNP-Linda Lima, RN Giorgio Miller RN RN tm6 Charleen Tomlinson ra3
[2024-04-30] MEDS ORDERED: KETOROLAC 30 MG/ML INJ ONE (09:29)
[2024-04-30] MEDS ORDERED: dexAMETHasone 10 MG/ML VIAL ONE (09:29)
[2024-04-30 18:50] VITALS: BP 120/98; O2SAT 100
[2024-04-30 18:52] VITALS: TEMP 98.4
== END 2024-04-30 09:36 | disposition home or self-care (01) ==
LOC: ER 09:14
DX: M79.602 Pain in left arm (principal); E11.9 Type 2 diabetes mellitus without complications
CPT/HCPCS: 96372; 99284; J1100